=== PATIENT | female | born 1935 | race Caucasian/White ===

== ENCOUNTER 2018-06-18 10:39 | Day surgery (SDC) | payer MEDICARE, OTHER ==
[2018-06-16 15:57] VITALS: BMI 24.6
[~2018-06-18 10:39] MED LIST: DEXAMETHASONE SOD PHOSPHATE 10 MG/ML 1 ML VIAL IV ONE; LACTATED RINGERS 1,000 ML IV SCH; LIDOCAINE 1% 20 ML VIAL (10MG/ML) FOR IV START INTRADERMA PRN; MIDAZOLAM 2 MG/2 ML VIAL IV PRN; ONDANSETRON 4 MG/2 ML VIAL IVP ONE; Pre Op ABX Message 1 EACH MISC MISCELLANE ONE; SODIUM CHLORIDE 0.9% 1,000 ML IV SCH; fentaNYL (PF) 50 MCG/ML 2 ML AMP IV PRN
[2018-06-18 11:36] VITALS: TEMP 97.9
[2018-06-18] MEDS ORDERED: LIDOCAINE 1% INJ 10MG/ML (20 ML MDV) ONE (12:53)
[2018-06-18] MEDS ORDERED: SUCCINYLCHOLINE CHLORIDE 100 MG/5 ML SYR IV ONE (12:53)
[2018-06-18] MEDS ORDERED: PROPOFOL 10 MG/ML 20 ML VIAL IV ONE (12:53)
[2018-06-18] MEDS ORDERED: LIDOCAINE 2% INJ 20 MG/ML INTRATRACH ONE (14:07)
[2018-06-18] MEDS ORDERED: ALBUTEROL NEBULIZED 2.5 MG/3 ML INHALATION ONE (14:28)
--- NOTE | 2018-06-18 15:00 | XR ---
EXAMINATION TYPE: XR chest 1V portable DATE OF EXAM: 06/18/2018 COMPARISON: Outside x-ray dated 05/15/2018 HISTORY: Post bronchoscopy TECHNIQUE: Single frontal view of the chest is obtained. FINDINGS: There is increased soft tissue attenuation along the right upper tracheal airway. This is above the thoracic inlet. Diffuse osteopenia and arthropathy of the shoulders. Right hilar soft tissu e prominence and postsurgical changes. Correlate for underlying COPD. Right hemidiaphragm elevation and subsegmental atelectasis suspected. Atherosclerotic change of the a john with no overt failure. Heart size normal. No pneumothorax. IMPRESSION: 1. Right hilar soft tissue prominence may be postsurgical underlying adenopathy not excluded. 2. COPD and postsurgical change with no sizable pneumothorax. 3. There is increased soft tissue density along the trachea paramedian to the right at the level just above the thoracic inlet. Correlate clinically.
[2018-06-18 15:08] VITALS: RESP 18
[2018-06-18 16:11] VITALS: BP 134/68; PULSE 123
--- NOTE | 2018-06-18 16:28 | P.PCN ---
Date of Procedure: 06/18/18 Preoperative Diagnosis: Suspicious right hilar mass, right mainstem bronchus narrowing based on CAT scan findings, shortness of breath Postoperative Diagnosis: 1 significant extrinsic compression of the right mainstem bronchus extending to the bronchus intermedius 2 endobronchial irregularities within the right mainstem bronchus/bronchus intermedius Procedure(s) Performed: flexible bronchoscopy and endobronchial biopsies, transbronchial needle aspirate of right paratracheal lymph node, bronchial lavage of the right stem bronchus Anesthesia: GETA Surgeon: Jeremi Zurita Estimated Blood Loss (ml): 5 Pathology: other Condition: stable Disposition: same day Operative Findings: Is is an 83-year-old female patient with history of COPD and the patient has a remote history of lung cancer with a previous right upper lobe resection. Based on the most recent CAT scan of the chest, the patient was found to have a right paratracheal/hilar adenopathy/mass causing mass effect and obstruction of the right mainstem bronchus. For that reason a bronchoscopy was indicated for d iagnostic purposes The patient was brought into the endoscopy suite. The procedure was done under general anesthesia. The patient was intubated in the usual fashion by FINISH SPECIALIST. The patient was intubated by #8 orotracheal tube. Following that the patient was assessed with a mechanical ventilator and as the patient was being adequately oxygen at 10 and ventilated, the flexible bronchoscopy was completed. The bronchoscope was advanced through the adapter that wasn't tested orotracheal tube and was gradually advanced to the lower trachea. The tip of the ET tube was seen around 2 cm above the stephanie. The distal trachea was within normal limits. Immediately, it was noted that the right mainstem bronchus was significantly narrowed. There was mass effect causing circumferential narrowing of the right mainstem bronchus and the most of the mass effect was coming posteriorly as the membranous trachea was pushed forward and that was causing significant airway compromise. I was able to push my flexible bronchoscope with opening. The stump of the right upper lobe was noted. The bronchus intermedius was also quite narrowed and extrinsically compressed. There was also some endobronchial swelling and prominence throughout the right mainstem bronchus and bronchus intermedius. The various segments of the right lower lobe were patent. The right middle lobe various segments were also patent. At this point, the bronchoscope was moved to the distal trachea and transbronchial needle aspirate of the membranous trachea leading into the right mainstem bronchus was done and I utilized a 19-gauge histology and a 21-gauge cytology needle. Several passes were obtained. The sample did not seem to be adequate. Pathology and further testing was needed. Following that, I performed and the bronchial biopsies as the site of the transbronchial needle aspirate became quite irregular and sloughed following the biopsy. In the bronchial biopsies of these areas were done and multiple biops ies were obtained. Following that, the right mainstem bronchus was irrigated with saline and total of 60 mL of saline was infused and 50 disease of bloody aspirate was obtained. Describing the right mainstem bronchus, the area was quite narrowed and there was significant airway compromise dropping the airway lumen by around 80% of his normal caliber. I was unable to pass the bronchoscope into the right mainstem bronchus and bronchus intermedius. Similar narrowing was also seen in the bronchus intermedius. I was hesitant to put an endobronchial stent knowing that I did not have any final pathologic confirmation of this was malignancy. We'll be awaiting the results of the biopsies and will make further decision on endobronchial stenting. The flexible bronchoscope was removed. No significant bleeding was encountered. The patient was extubated and the patient was transferred to recovery in stable condition. Chest x-ray showed some prominence in the right hilar area otherwise no other abnormalities noted. The patient will be discharged home once cleared by anesthesia. I'm going to contact the patient once the results of the biopsies are available. We'll continue to follow.
== END 2018-06-18 16:58 | disposition home or self-care (01) ==
LOC: ORWHC2ENDO 10:39
PROVIDERS: ATTEND Internal Medicine Critical Care Medicine
DX: C34.91 Malignant neoplasm of unspecified part of right bronchus or lung (principal); J44.9 Chronic obstructive pulmonary disease, unspecified; H91.90 Unspecified hearing loss, unspecified ear; K21.9 Gastro-esophageal reflux disease without esophagitis; E78.5 Hyperlipidemia, unspecified; R06.1 Stridor; Z87.891 Personal history of nicotine dependence; Z85.118 Personal history of other malignant neoplasm of bronchus and lung; Z90.2 Acquired absence of lung [part of]; Z79.82 Long term (current) use of aspirin; Z79.899 Other long term (current) drug therapy
CPT/HCPCS: 88108; 88305; 88173; 88342; 88341; 71045; 31629; 31625; 31624; J2001 ×2; J1100; J2405; J0330; J2704

== ENCOUNTER 2018-06-26 10:00 | Day surgery (SDC) | payer MEDICARE, OTHER ==
[~2018-06-26 10:00] MED LIST changes: +ALBUTEROL NEB (CONC) 2.5 MG/0.5 ML INHALATION ONE; -DEXAMETHASONE SOD PHOSPHATE 10 MG/ML 1 ML VIAL IV ONE; -LIDOCAINE 1% 20 ML VIAL (10MG/ML) FOR IV START INTRADERMA PRN; +LIDOCAINE 2% (PF) 20 MG/ML 10 ML AMP INHALATION ONE; +LIDOCAINE VISCOUS 300 MG/15 ML CUP MUCOUS MEM ONE; -MIDAZOLAM 2 MG/2 ML VIAL IV PRN; -ONDANSETRON 4 MG/2 ML VIAL IVP ONE; -Pre Op ABX Message 1 EACH MISC MISCELLANE ONE; -SODIUM CHLORIDE 0.9% 1,000 ML IV SCH; -fentaNYL (PF) 50 MCG/ML 2 ML AMP IV PRN
[2018-06-26 10:58] VITALS: BP 150/71; PULSE 92; RESP 20; TEMP 97.5
[2018-06-26] MEDS ORDERED: LIDOCAINE 1% 20 ML VIAL (10MG/ML) FOR IV START INTRADERMA ONE (11:12)
[2018-06-26] MEDS ORDERED: METOCLOPRAMIDE 5 MG/ML 2 ML VIAL IVP ONE (11:12)
[2018-06-26] MEDS ORDERED: ONDANSETRON 4 MG/2 ML VIAL IVP STA (11:22)
== END 2018-06-26 12:15 | disposition home or self-care (01) ==
LOC: ORWHC2ENDO 10:00
PROVIDERS: ATTEND Internal Medicine Critical Care Medicine
DX: R91.8 Other nonspecific abnormal finding of lung field (principal); Z53.8 Procedure and treatment not carried out for other reasons

== ENCOUNTER → 2018-07-04 | Outpatient (CLI) | payer MEDICARE, OTHER ==
--- NOTE | 2018-07-05 14:20 | PE ---
Nuclear medicine PET/CT HISTORY: Lung carcinoma, initial Patient received 14.4 mCi F18 FDG intravenously in delayed scanning was performed from the skull base to the mid thighs. Localization and attenuation correction CT scan was performed. Correlation to chest CT 05/28/2018 neck and chest: Right hilar mass shows associated hypermetabolic uptake, SUV is 19. There is no addit ional lung mass present. No pleural or pericardial effusion. Some basilar atelectatic changes are pre sent left greater than right. No cervical, axillary, or mediastinal adenopathy. There are coronary ar sylvia calcifications. ABDOMEN: No evident adrenal mass. No liver mass or suspicious hypermetabolic uptake. Large cysts low dense left pelvic mass is present measuring 4.9 x 7.2 cm and shows cystic Hounsfield unit measurement . Some local mass effect. No pelvic adenopathy or free fluid. Diverticular changes associated with th e sigmoid colon. There is mass effect inferior margin of the posterior lateral left urinary bladder, some questionable local abnormal soft tissue, questionable tethered appearance. Surgical clips are pr esent, there may have been prior surgery to account for the distortion of the bladder. Osseous structures show spondylolysis at L5, there is degenerative disc change and facet arthropathy. IMPRESSION: Findings compatible with bronchogenic carcinoma. Postop changes. Indeterminate low dense left pelvic mass with additional findings above.
== END | disposition home or self-care (01) ==
LOC: RADPETMAIN 11:04
PROVIDERS: ATTEND Radiology Radiation Oncology
DX: C34.90 Malignant neoplasm of unspecified part of unspecified bronchus or lung (principal); R19.00 Intra-abdominal and pelvic swelling, mass and lump, unspecified site
CPT/HCPCS: 78815; A9552

== ENCOUNTER → 2018-09-19 | Outpatient (CLI) | payer MEDICARE, OTHER ==
--- NOTE | 2018-09-20 09:52 | PE ---
EXAMINATION TYPE: PET CT fusion skull to thigh DATE OF EXAM: 09/19/2018 COMPARISON: CT thorax 05/28/2018 Prior PET/CT: 07/04/2018 HISTORY: Lung cancer TECHNIQUE: Following the intravenous administration of 10.755 mCi of F-18 FDG, whole body images are performed from the skull base to the midthigh. Images are reviewed on the computer in the coronal, axial, and sagittal planes. Reconstructed rotating images are created on independent workstation and reviewed on the computer. A localization and attenuation correction CT is performed in conjunction with the PET scan. DLP: Unknown mGycm SCAN: Subsequent Blood glucose: 75 mg/dL Average Mediastinum SUV: 1.72 Average Liver SUV: 1.85 FINDINGS: NECK: No abnormal uptake THORAX: There is increased uptake within a posterior right peribronchial region measuring 4.91 SUV va lue. This is diminished in intensity which previously measured 16.96 SUV value. ABDOMEN: No abnormal uptake PELVIS: There is some focal uptake at the level the rectum. This has elevated SUV value of 8.91. Cons ider additional evaluation. Neoplasm is not excluded. OSSEOUS STRUCTURES: No abnormal uptake LOCALIZATION CT: Vascular calcification aorta. Ascending thoracic aorta at the level of the main pulm onary artery is 2.9 cm. Patient is 2.7 cm. The mass posterior to the right bronchus is estimated at 2 .5 cm in diameter on the localization CT. Coronary artery calcification is present. Large cystic stru cture left hemipelvis measuring 7.2 x 5.0 cm. Bladder diverticulum is in the right hemipelvis. COMPARISON: The mass appears larger on the current CT examination although there is obvious marked di minished SUV value. The cystic mass within the left hemipelvis was present previously and is roughly similar in size to the prior study. IMPRESSION: 1. Diminished radiotracer accumulation within the right posterior peribronchial mass the mass appears more evident on the current CT examination. 2. No suspicious changes to suggest metastatic disease.
== END | disposition home or self-care (01) ==
LOC: RADPETMAIN 09:51
PROVIDERS: ATTEND Internal Medicine Hematology & Oncology
DX: R91.8 Other nonspecific abnormal finding of lung field (principal); I70.0 Atherosclerosis of aorta; I25.10 Atherosclerotic heart disease of native coronary artery without angina pectoris; N32.3 Diverticulum of bladder
CPT/HCPCS: 78815; A9552

== ENCOUNTER → 2019-04-17 | Outpatient (CLI) | payer MEDICARE, OTHER ==
--- NOTE | 2019-04-20 11:56 | PE ---
Nuclear medicine PET/CT HISTORY: Lung carcinoma, subsequent Patient received 12.5 mCi F-18 FDG intravenously in delayed scanning was performed from the skull bas e to the mid thighs. Localization and attenuation correction CT scan was performed. Correlation to prior nuclear medicine PET/CT 09/19/2018 Neck and chest: There is no evident cervical or supraclavicular adenopathy. Right hilar soft tissue s hows associated hypermetabolic uptake, SUV is 6.2. Postop changes are noted in the right hemithorax. There is no pleural or pericardial effusion. No evident lung mass. ABDOMEN: There is no adrenal mass or liver mass. No retroperitoneal adenopathy or suspicious hypermet abolic uptake. Large cystic left pelvic mass is present, adjacent focal activity may be due to distal ureter. There is extensive diverticular change present. Left hernia and inguinal region contains fat . Suspect there is a rectocele present, there is associated hypermetabolic uptake which may be physio logic. IMPRESSION: Right hilar abnormal hypermetabolic uptake again noted.
== END | disposition home or self-care (01) ==
LOC: RADPETMAIN 08:27
PROVIDERS: ATTEND Internal Medicine Hematology & Oncology
DX: C34.31 Malignant neoplasm of lower lobe, right bronchus or lung (principal)
CPT/HCPCS: 78815; A9552

== ENCOUNTER → 2019-10-16 | Outpatient (CLI) | payer MEDICARE, OTHER ==
--- NOTE | 2019-10-17 19:48 | PE ---
EXAMINATION TYPE: PET CT fusion skull to thigh DATE OF EXAM: 10/16/2019 COMPARISON: 04/17/[address] HISTORY: Non-small cell lung cancer, subsequent. History of lung surgery. Last radiation july 2018. La st chemotherapy August 2018. TECHNIQUE: Following the intravenous administration of 11.66 mCi of F-18 FDG, whole body images are performed from the skull base to the midthigh. Images are reviewed on the computer in the coronal, a xial, and sagittal planes. Reconstructed rotating images are created on independent workstation and reviewed on the computer. A localization and attenuation correction CT is performed in conjunction with the PET scan. SCAN: Subsequent Scan Blood glucose: 80 mg/dL Average Mediastinum SUV: 1.42 Average Liver SUV: 1.83 FINDINGS: NECK: No suspicious hypermetabolic activity. THORAX: Increased size of markedly hypermetabolic right subcarinal mediastinal mass, max SUV 16.4, me asuring up to 3.8 x 2.4 cm (3:79) and previously measuring up to 2.1 x 1.7 cm on 04/17/2019 comparison. ABDOMEN/PELVIS: No suspicious hypermetabolic activity. OSSEOUS STRUCTURES: No suspicious hypermetabolic activity. LOCALIZATION CT: There are increased groundglass opacities of the posterior right upper lung. Postsur gical changes of the right lung with right-sided volume loss. No pulmonary mass. Layering gallbladder sludge versus tiny gallstones within the gallbladder. Left pelvic there is asymmetric left and anter ior urinary bladder wall thickening. 7.7 cm cystic mass redemonstrated, with no metabolic activity. T here is a 4.3 x 5.7 cm left fat-containing inguinal hernia with internal mild inflammatory stranding near the neck and inferiorly, with metabolic activity less than blood pool. Sigmoid colon diverticulo sis. Marked calcified atherosclerotic disease. Degenerative changes of the pubic symphysis and spine. COMPARISON: Progression versus 04/17/2019. IMPRESSION: 1. Increased size and hypermetabolic activity of the right mediastinal neoplastic mass versus [address] comparison. 2. No evidence of distant metastatic disease.
== END | disposition home or self-care (01) ==
LOC: RADPETMAIN 08:38
PROVIDERS: ATTEND Internal Medicine Hematology & Oncology
DX: R94.8 Abnormal results of function studies of other organs and systems (principal); C34.31 Malignant neoplasm of lower lobe, right bronchus or lung
CPT/HCPCS: 78815; A9552

== ENCOUNTER → 2020-02-25 | Outpatient (CLI) | payer MEDICARE, OTHER ==
--- NOTE | 2020-02-29 15:26 | PE ---
Nuclear medicine PET/CT HISTORY: Bilateral lung carcinoma, subsequent Patient received 11.8 mCi F-18 FDG intravenously in delayed scanning was performed from the skull bas e to the mid thighs. Localization and attenuation correction CT scan was performed. Correlation to prior nuclear medicine PET/CT dated 10/16/2019 Chest and neck: There is no supraclavicular or cervical adenopathy. The mass at the level of the para tracheal suprahilar location on the right shows some associated hypermetabolic uptake but poorly defi maninder margins, the size of the hypermetabolic uptake at this level is thought to be decreased as compar ed to prior exam. There are coronary artery calcifications. No pleural or pericardial effusion. Some patchy density is present in the right lower lobe not seen on prior exam which is indeterminate. Volu me loss is present in the right hemithorax, patient is post lobectomy. No axillary adenopathy. ABDOMEN: There is no evident adrenal mass or suspicious hypermetabolic uptake. No ascites. Cystic lef t adnexal mass is again seen. Suspect postop changes in the left groin post hernia repair. Osseous structures are stable. IMPRESSION: Improvement, treatment response in previously identified abnormal chest uptake as describ ed.
== END | disposition home or self-care (01) ==
LOC: RADPETMAIN 10:03
PROVIDERS: ATTEND Internal Medicine Hematology & Oncology
DX: C34.31 Malignant neoplasm of lower lobe, right bronchus or lung (principal); R91.8 Other nonspecific abnormal finding of lung field; C34.12 Malignant neoplasm of upper lobe, left bronchus or lung
CPT/HCPCS: 78815; A9552

== ENCOUNTER → 2020-08-11 | Outpatient (CLI) | payer MEDICARE, OTHER ==
--- NOTE | 2020-08-14 07:20 | PE ---
EXAMINATION TYPE: PET CT fusion skull to thigh DATE OF EXAM: 08/11/2020 COMPARISON: Prior PET/CT February 25, 2020 and older studies HISTORY: Right-sided lung cancer diagnosed 2019 initially treated with radiation treatment, recently completed chemotherapy June 28 TECHNIQUE: Following the intravenous administration of 9.35 mCi of F-18 FDG, whole body images are p erformed from the skull base to the midthigh. Images are reviewed on the computer in the coronal, ax ial, and sagittal planes. Reconstructed rotating images are created on independent workstation and r eviewed on the computer. A localization and attenuation correction CT is performed in conjunction w ith the PET scan. Blood glucose level equals 63. SCAN: Subsequent Scan FINDINGS: SKULL BASE AND NECK: Hypermetabolic uptake left lateral proximal upper extremity muscle axial image 3 6 is presumed inflammatory. No new areas of abnormal hypermetabolic uptake. CHEST, MEDIASTINUM, AND HILAR REGION: There is improved hypermetabolic uptake at level of the right p aratracheal suprahilar region with more ill-defined masslike consolidation redemonstrated. Adjacent l amita shows slightly hypermetabolic irregular areas of consolidation. Findings consistent with positive treatment response. Max SUV is 3.6 at site of prior hypermetabolic neoplasm and 3.69 throughout the lung parenchyma. Some right-sided volume loss with mediastinal shift is present. Additional consolida tion and/or atelectatic change extends to the posterior lower lung. No new areas of abnormal hypermet abolic uptake. Surgical changes right hilar level redemonstrated. ABDOMEN AND PELVIS: Normal excretion. No new adrenal masses. No new areas of abnormal hypermetabolic uptake. OSSEOUS STRUCTURES: New sclerosis and hypermetabolic uptake left sacrum axial image 164, the max SUV is 3.58. Correlate for possible subacute healing sacral insufficiency fracture. Sclerotic metastatic disease felt less likely as there is suspected healing subacute left inferior pelvic ramus fracture a xial image 200 and sclerosis consistent with healing fracture superior pelvic ramus near pubic symphy sis axial image 193. OTHER CT: Moderate coronary artery calcification is present. Calcification at level of mitral valve. Moderate left atrial dilatation. Small dependent stones and/or gallbladder sludge. Scattered colonic diverticula. Moderate calcified p laque of the aorta extends into branch vessels. Bilateral pars defect L5 level with significant spondylolisthesis L5-S1 and advanced disc space narro wing and endplate sclerosis at this level all redemonstrated. IMPRESSION: Positive treatment response to the known right-sided neoplasm. No new metastatic disease. Healing pelvic fractures noted.
== END | disposition home or self-care (01) ==
LOC: RADPETMAIN 10:19
PROVIDERS: ATTEND Internal Medicine Hematology & Oncology
DX: C34.31 Malignant neoplasm of lower lobe, right bronchus or lung (principal)
CPT/HCPCS: 78815; A9552

== ENCOUNTER 2020-08-14 12:31 | Day surgery (SDC) | payer MEDICARE, OTHER ==
[2020-08-11 15:28] VITALS: BMI 22.1
[~2020-08-14 12:31] MED LIST changes: +ACETAMINOPHEN TAB 500 MG TAB PO PRN; -ALBUTEROL NEB (CONC) 2.5 MG/0.5 ML INHALATION ONE; +HEPARIN SODIUM,PORCINE/PF 5,000 UNIT/0.5 ML SYRINGE SQ PRN; +HYDROmorphone 0.5 MG/0.5 ML SYRINGE IVP PRN; +LIDOCAINE 1% (10MG/ML) FOR IV START INTRADERMA PRN; -LIDOCAINE 2% (PF) 20 MG/ML 10 ML AMP INHALATION ONE; -LIDOCAINE VISCOUS 300 MG/15 ML CUP MUCOUS MEM ONE; +Pre Op ABX Message 1 EACH MISC MISCELLANE ONE
[2020-08-14] MEDS ORDERED: LACTATED RINGERS 1,000 ML IV ONE (12:59)
[2020-08-14] MEDS ORDERED: ONDANSETRON 4 MG/2 ML VIAL IVP ONE (13:08)
--- NOTE | 2020-08-14 14:18 | P.GSHP ---
History of Present Illness H&P Date: 08/14/20 Chief Complaint: Right lung cancer Patient here today for Port-A-Cath placement. Patient has been receiving chemotherapy for her right-sided lung cancer. Her IV access is very poor and she is to continue with immune therapy at this time. Her next treatment is scheduled for Friday. Past Medical History Past Medical History: COPD, GERD/Reflux, Osteoarthritis (OA) Additional Past Medical History / Comment(s): rt lung CA-received radiation and chemo, curretly receiving immunotheray, left pelvic fx-using a cane, receive both covid vaccines,migraines when younger, "a lot of heartburn and gas", bronchitis for past 3 months, hiatal hernia, chronic colitis,lung hx bowel obstruction History of Any Multi-Drug Resistant Organisms: None Reported Past Surgical History: Bladder Surgery, Bowel Resection, Hysterectomy Additional Past Surgical History / Comment(s): rt upper lobectomy, rectocele, hemorrhoidectomy, [place] cataracts, surgery for bowel obstruction Past Anesthesia/Blood Transfusion Reactions: No Reported Reaction Smoking Status: Former smoker - Past Family History Mother Family Medical History: Cancer Son(s) Family Medical History: Cancer Brother(s) Family Medical History: Deep Vein Thrombosis (DVT) Medications and Allergies Home Medications Medication Instructions Recorded Confirmed Type ALPRAZolam [Xanax] 0.25 mg PO BID PRN 06/16/18 08/11/20 History Albuterol Sulfate [Proair Hfa] 1 - 2 puff INHALATION Q4HR PRN 06/16/18 08/11/20 History Aspirin [Adult Low Dose Aspirin EC] 81 mg PO HS 06/16/18 08/11/20 History Cholecalciferol [Vitamin D3] 5,000 unit PO DAILY 06/16/18 08/11/20 History Multivitamins, Thera [Multivitamin 1 tab PO DAILY 06/16/18 08/11/20 History (formulary)] Omeprazole [PriLOSEC] 20 mg PO AC-[id number] 06/16/18 08/11/20 History Ubidecarenone [Co Q-10] 100 mg PO DAILY 06/16/18 08/11/20 History Acetaminophen [Tylenol] 1,000 mg PO TID PRN 08/11/20 08/11/20 History Allergies Allergy/AdvReac Type Severity Reaction Status Date / Time latex Allergy Swelling Verified 08/11/20 15:07 stitches Allergy SWOLLEN Uncoded 08/11/20 15:07 FOOT Surgical - Exam Vital Signs Temp Pulse Resp BP Pulse Ox 97.8 F 96 18 169/76 96 08/14/20 12:50 08/14/20 12:50 08/14/20 12:50 08/14/20 12:50 08/14/20 12:50 Physical exam: General: Well-developed, somewhat malnourished HEENT: Normocephalic, sclerae nonicteric Abdomen: Nontender, nondistended Extremities: No edema Neuro: Alert and oriented Assessment and Plan (1) Cancer of right lung Narrative/Plan: Will proceed with Port-A-Cath placement at this time. Risks of bleeding, infection, DVT, pneumothorax, catheter malfunction, anesthesia related complications were discussed. The patient understands and wishes to proceed. Current Visit: Yes Status: Acute Code(s): C34.91 - MALIGNANT NEOPLASM OF UNSP PART OF RIGHT BRONCHUS OR LUNG SNOMED Code(s): 400774447
[2020-08-14] MEDS ORDERED: PHENYLEPHRINE-0.9% NACL SYG 1,000 MCG/10 ML SYRINGE ONE (14:19)
[2020-08-14] MEDS ORDERED: PROPOFOL 10 MG/ML 20 ML VIAL IV ONE (14:19)
[2020-08-14] MEDS ORDERED: LIDOCAINE 1% INJ 10MG/ML (20 ML MDV) ONE (14:19)
[2020-08-14] MEDS ORDERED: fentaNYL (PF) 50 MCG/ML 2 ML AMP ONE (14:19)
[2020-08-14] MEDS ORDERED: LIDOCAINE 1% INJ 10MG/ML (20 ML MDV) SQ ONE ×3 (14:21→14:45)
[2020-08-14] MEDS ORDERED: SODIUM CHLORIDE 0.9% 50 ML with ceFAZolin 1,000 MG IV ONE ×2 (14:43)
[2020-08-14] MEDS ORDERED: NALOXONE 0.4 MG/ML 1 ML VIAL IV PRN (15:09)
--- NOTE | 2020-08-14 15:10 | P.OP ---
Date of Procedure: 08/14/20 Procedure(s) Performed: PREOPERATIVE DIAGNOSIS: Lung cancer POSTOPERATIVE DIAGNOSIS: Same PROCEDURE: Port-A-Cath placement with fluoroscopic and ultrasound guidance SURGEON: Caryl EBL: Minimal ANESTHESIA: Sedation COMPLICATIONS: None OPERATIVE PROCEDURE: Patient was brought and placed on the operative table in the supine position. The patient was sedated per anesthesia that time. The chest and neck were prepped and draped in usual sterile fashion. The ultrasound probe was used to identify the location of the right internal jugular vein. The skin was localized with lidocaine. The Seldinger needle was advanced into the IJ under ultrasound guidance. The wire was advanced through the needle under fluoroscopic guidance into the superior vena cava. A port pocket was created in the right infraclavicular location. The catheter was tunneled from the wire entrance site to the port pocket. The port was then connected to the catheter. The dilator introducer was threaded over the guidewire. The guidewire and dilator were then removed. The catheter was advanced through the introducer and introducer was then removed. The tip was seen to be in the right atrial junction via fluoroscopy. A picture of the radiograph showing the tip at the radial digital junction was taken. Port was flushed with both saline and a Hep- Lock solution. There was good flow both in and out of the port. The port was sutured in underlying tissues using 3-0 silk sutures. The subcutaneous tissues were reapproximated using 3-0 Vicryl sutures and the skin at both locations using 4-0 Monocryl sutures. Skin glue and sterile dressings then applied. DISPOSITION: Stable to recovery room
[2020-08-14 15:17] VITALS: TEMP 97.5
[2020-08-14 15:26] VITALS: RESP 16
--- NOTE | 2020-08-14 16:05 | FL ---
EXAMINATION TYPE: FL guided central line placement DATE OF EXAM: 08/14/2020 FLUOROSCOPY Fluoroscopy time not provided during Port-A-Cath insertion. Dose of 0.75445 mGym2. 1 image/s docume nt/s the procedure.
--- NOTE | 2020-08-14 16:11 | XR ---
EXAMINATION TYPE: XR chest 1V portable DATE OF EXAM: 08/14/2020 Comparison: 06/18/2018 Clinical History: 85-year-old female insertion port a cath Findings: Right-sided injection port. Catheter tip at the mid to lower SVC level. Heart normal size. Atherosclerotic calcifications are at the aorta. Postsurgical volume loss in the right side of the ch est with staple lines at the right hilum and right suprahilar level. Focal right midlung opacity is n ew compared to 06/18/2018. Impression: Redemonstrated postsurgical volume loss in the right hemithorax. Known right hilar neoplasm not well delineated radiographically. Patchy right midlung opacity could represent post radiation therapy foss ge or pneumonia. We note hypermetabolism in this area on the patient's 08/11/2020 PET/CT.
[2020-08-14 17:28] VITALS: BP 135/78; PULSE 82
== END 2020-08-14 17:20 | disposition home or self-care (01) ==
LOC: OR 12:31
PROVIDERS: ATTEND Surgery
DX: C34.91 Malignant neoplasm of unspecified part of right bronchus or lung (principal); J44.9 Chronic obstructive pulmonary disease, unspecified; K21.9 Gastro-esophageal reflux disease without esophagitis; M19.90 Unspecified osteoarthritis, unspecified site; Z92.21 Personal history of antineoplastic chemotherapy; Z92.3 Personal history of irradiation; S32.9XXD Fracture of unspecified parts of lumbosacral spine and pelvis, subsequent encounter for fracture with routine healing; J40 Bronchitis, not specified as acute or chronic; K44.9 Diaphragmatic hernia without obstruction or gangrene; K52.89 Other specified noninfective gastroenteritis and colitis; Z90.49 Acquired absence of other specified parts of digestive tract; Z90.710 Acquired absence of both cervix and uterus; Z98.890 Other specified postprocedural states; Z98.42 Cataract extraction status, left eye; Z98.41 Cataract extraction status, right eye; Z97.2 Presence of dental prosthetic device (complete) (partial); Z87.891 Personal history of nicotine dependence; Z80.9 Family history of malignant neoplasm, unspecified; Z82.49 Family history of ischemic heart disease and other diseases of the circulatory system; Z79.82 Long term (current) use of aspirin; Z79.899 Other long term (current) drug therapy; Z91.040 Latex allergy status; Z91.09 Other allergy status, other than to drugs and biological substances
CPT/HCPCS: 77001; 71045; 36561; 76937; C1788; J2405; J0690; J2001; J3010; J1642; J2370; J2704; J1644

== ENCOUNTER → 2021-03-08 | Outpatient (CLI) | payer MEDICARE, OTHER ==
--- NOTE | 2021-03-12 08:28 | PE ---
EXAMINATION TYPE: PET CT fusion skull to thigh DATE OF EXAM: 03/08/2021 COMPARISON: Prior PET/CT August 11, 2020 and older studies HISTORY: Right-sided lung cancer diagnosed 2019 initially treated with radiation treatment, had chemo therapy in 2020. TECHNIQUE: Following the intravenous administration of 8.57 mCi of F-18 FDG, whole body images are p erformed from the skull base to the midthigh. Images are reviewed on the computer in the coronal, ax ial, and sagittal planes. Reconstructed rotating images are created on independent workstation and r eviewed on the computer. A localization and attenuation correction CT is performed in conjunction w ith the PET scan. Blood glucose level equals 77. SCAN: Subsequent Scan FINDINGS: SKULL BASE AND NECK: Hypermetabolic uptake left lateral proximal upper extremity muscle prior study h as resolved in interval. No new areas of abnormal hypermetabolic uptake. CHEST, MEDIASTINUM, AND HILAR REGION: Surgical changes to right lung extending from the hilum anterio rly and superiorly redemonstrated There is worsening hypermetabolic uptake at level of the right para tracheal suprahilar region extending anteriorly and superiorly with worsening masslike consolidation. Adjacent lung shows persistent slightly hypermetabolic irregular areas of consolidation posteriorly. Max SUV is 7.36 on axial image 75 at site of prior hypermetabolic neoplasm increased from 3.6 and 3 .68 throughout the lung parenchyma fairly stable from prior. Some right-sided volume loss with medias tinal shift is redemonstrated. Additional consolidation and/or atelectatic change extends to the post erior lower lung. New hypermetabolic roughly 1.0 cm focus in the azygoesophageal recess right lower l obe medially axial image 83, max SUV is 5.1. No new areas of abnormal hypermetabolic uptake left lung. ABDOMEN AND PELVIS: Normal excretion. No new adrenal masses. No new areas of abnormal hypermetabolic uptake. OSSEOUS STRUCTURES: Resolved hypermetabolic uptake left sacrum. No new areas of abnormal hypermetabol ic uptake. Healed pelvic fractures noted. OTHER CT: Moderate coronary artery calcification is present. Calcification at level of mitral valve. Moderate left atrial dilatation. Small dependent stones and/or gallbladder sludge. Scattered colonic diverticula. Moderate calcified p laque of the aorta extends into branch vessels. Bilateral pars defect L5 level with significant spondylolisthesis L5-S1 and advanced disc space narro wing and endplate sclerosis at this level all redemonstrated. Stable 8.3 x 6.5 cm thin-walled left pe lvic cyst or cystic ovarian lesion axial image 180. IMPRESSION: Right lung neoplastic progression as detailed above.
== END | disposition home or self-care (01) ==
LOC: RADPETMAIN 10:47
PROVIDERS: ATTEND Internal Medicine Hematology & Oncology
DX: C34.31 Malignant neoplasm of lower lobe, right bronchus or lung (principal)
CPT/HCPCS: 78815; A9552

== ENCOUNTER 2024-01-09 11:39 | Inpatient (IN) | payer MEDICARE, OTHER ==
--- NOTE | 2024-01-09 12:51 | ED ---
General Adult HPI - General Chief complaint: Extremity Problem,Nontraumatic Stated complaint: L foot issue Time Seen by Provider: 01/09/24 12:02 Source: patient, RN notes reviewed Mode of arrival: wheelchair Limitations: no limitations - History of Present Illness Initial comments: Patient is an 88-year-old female presents to the emergency department with concerns for left foot infection. Patient is on hospice for lung cancer. Patient has been dealing with her left foot infection for a couple of months now. Patient has been on several antibiotics including doxycycline recently. Patient has significant pain especially with ambulation, 8/10. Pain at rest is 5/10. This is consuming her and she has been very uncomfortable. They no longer feel they are able to manage this as an outpatient. Patient was at [facility] previously. Patient also has seen her primary care physician and foot doctor and urgent care for this. Patient has not gone to wound center yet - Related Data Home Medications Medication Instructions Recorded Confirmed ALPRAZolam [Xanax] 0.25 mg PO BID PRN 06/16/18 01/09/24 Aspirin [Adult Low Dose Aspirin EC] 81 mg PO DAILY 06/16/18 01/09/24 Cyanocobalamin (Vitamin B-12) 1,000 mcg PO DAILY 01/09/24 01/09/24 [Vitamin B-12] Doxycycline Hyclate 100 mg PO BID 01/09/24 01/09/24 L.acidoph,Paracasei, B.lactis 1 cap PO DAILY 01/09/24 01/09/24 [Probiotic] amLODIPine [Norvasc] 2.5 mg PO DAILY 01/09/24 01/09/24 guaiFENesin [Mucinex] 600 mg PO BID PRN 01/09/24 01/09/24 Allergies Allergy/AdvReac Type Severity Reaction Status Date / Time latex Allergy Swelling Verified 01/09/24 14:17 stitches Allergy SWOLLEN Uncoded 08/11/20 15:07 FOOT Review of Systems ROS Statement: Those systems with pertinent positive or pertinent negative responses have been documented in the HPI. ROS Other: All systems not noted in ROS Statement are negative. Constitutional: Denies: fever ENT: Denies: ear pain Respiratory: Denies: dyspnea Cardiovascular: Denies: chest pain Endocrine: Denies: fatigue Musculoskeletal: Reports: as per HPI Skin: Reports: as per HPI Past Medical History Past Medical History: Cancer, COPD, GERD/Reflux, Osteoarthritis (OA) Additional Past Medical History / Comment(s): rt lung CA-received radiation and chemo, currently receiving immunotheray, left pelvic fx-using a cane, receive both covid vaccines,migraines when younger, "a lot of heartburn and gas", bronchitis for past 3 months, hiatal hernia, chronic colitis,lung hx bowel obstruction History of Any Multi-Drug Resistant Organisms: None Reported Past Surgical History: Bladder Surgery, Bowel Resection, Hysterectomy Additional Past Surgical History / Comment(s): rt upper lobectomy, rectocele, hemorrhoidectomy, [place] cataracts, surgery for bowel obstruction Past Anesthesia/Blood Transfusion Reactions: No Reported Reaction Past Psychological History: Anxiety Smoking Status: Former smoker Past Alcohol Use History: None Reported Past Drug Use History: None Reported - Past Family History Mother Family Medical History: Cancer Son(s) Family Medical History: Cancer Brother(s) Family Medical History: Deep Vein Thrombosis (DVT) General Exam Limitations: no limitations General appearance: alert, in no apparent distress Head exam: Present: normocephalic Eye exam: Present: normal appearance Respiratory exam: Present: normal lung sounds bilaterally Cardiovascular Exam: Present: regular rate, normal rhythm Expanded Peripheral pulses: 2+: Posterior Tibialis (L), Dorsalis Pedis (L) GI/Abdominal exam: Present: soft. Absent: tenderness Extremities exam: Present: normal capillary refill, other (Left foot cellulitis and ulcer, see below) Neurological exam: Present: alert. Absent: motor sensory deficit Psychiatric exam: Present: normal affect, normal mood Skin exam: Present: other (Left distal and mid foot, near the proximal foot with erythema. Plantar distal foot with approximately 1 cm ulcer stage II/III) Course Vital Signs 01/09/24 11:40 Temperature 98.2 F Pulse Rate 88 Respiratory 18 Rate Blood Pressure 126/64 O2 Sat by Pulse 93 L Oximetry Medical Decision Making - Medical Decision Making Was pt. sent in by a medical professional or institution (, PA, RESPIRATORY MEDICINE PHYSICIAN, urgent care, hospital, or [facility]...) When possible be specific @ -Patient was sent in by home hospice Did you speak to anyone other than the patient for history (EMS, parent, family, police, friend...)? What history was obtained from this source @ -I did speak with patient's hospice nurse as well as family members that he will provide history as patient is hard of hearing Did you review nursing and triage notes (agree or disagree)? Why? @ -I reviewed and agree with nursing and triage notes Were old charts reviewed (outside hosp., previous admission, EMS record, old EKG, old radiological studies, urgent care reports/EKG's, [facility] records)? Report findings @ -No old charts were reviewed Differential Diagnosis (chest pain, altered mental status, abdominal pain women, abdominal pain men, vaginal bleeding, weakness, fever, dyspnea, syncope, headache, dizziness, GI bleed, back pain, seizure, CVA, palpatations, mental health, musculoskeletal)? @ -Differential Fever: Pneumonia, viral URI, endocarditis, myocarditis, pericarditis, otitis, sinusitis, peritonsillar Abscess, retropharyngeal Abscess, epiglottitis, peritonitis, appendicitis, Tricia cystitis, diverticulitis, hepatitis, colitis, UTI, PID, TOA, pyelonephritis, prostatitis, epididymitis, meningitis, encephalitis, pulmonary embolism, CVA, thyroid storm, pancreatitis, adrenal crisis, cavernous sinus thrombosis, this is not meant to be an all-inclusive list. EKG interpreted by me (3pts min.). @ -As above X-rays interpreted by me (1pt min.). @ -Foot x-ray without evidence of osseous osteomyelitis CT interpreted by me (1pt min.). @ -None done U/S interpreted by me (1pt. min.). @ -None done What testing was considered but not performed or refused? (CT, X-rays, U/S, labs)? Why? @ -None What meds were considered but not given or refused? Why? @ -None Did you discuss the management of the patient with other professionals (professionals i.e. DrSisi, PA, RESPIRATORY MEDICINE PHYSICIAN, lab, RT, psych nurse, social work job titles, auger mill operator, teacher, electronic intelligence officer, lead case manager)? Give summary @ -Case was discussed with Dr. Astudillo who will admit covering Dr. Gray. Case also discussed with Dr. Jasmine who will consult Was smoking cessation discussed for >3mins.? @ -No Was critical care preformed (if so, how long)? @ -No Were there social determinants of health that impacted care today? How? (Homelessness, low income, unemployed, alcoholism, drug addiction, transportation, low edu. Level, literacy, decrease access to med. care, half-way, rehab)? @ -No Was there de-escalation of care discussed even if they declined (Discuss DNR or withdrawal of care, Hospice)? DNR status @ -No What co-morbidities impacted this encounter? (DM, HTN, Smoking, COPD, CAD, Cancer, CVA, ARF, Chemo, Hep., AIDS, mental health diagnosis, sleep apnea, morbid obesity)? @ -None Was patient admitted / discharged? Hospital course, mention meds given and route, prescriptions, significant lab abnormalities, going to OR and other pertinent info. @ -Patient presents with prolonged foot ulcer and cellulitis despite several doses of antibiotics. Patient will be admitted with IV antibiotics. Admission orders written. Consult placed. Undiagnosed new problem with uncertain prognosis? @ -No Drug Therapy requiring intensive monitoring for toxicity (Heparin, Nitro, Insulin, Cardizem)? @ -No Were any procedures done? @ -No Diagnosis/symptom? @ -Foot ulcer, cellulitis Acute, or Chronic, or Acute on Chronic? @ -Acute, acute Uncomplicated (without systemic symptoms) or Complicated (systemic symptoms)? @ -Complicated with severe pain Side effects of treatment? @ -No Exacerbation, Progression, or Severe Exacerbation? @ -No Poses a threat to life or bodily function? How? (Chest pain, USA, GA, pneumonia, PE, COPD, DKA, ARF, appy, cholecystitis, CVA, Diverticulitis, Homicidal, Suicidal, threat to staff... and all critical care pts) @ -Threat of osteomyelitis and prolonged infection - Lab Data Result diagrams: 01/09/24 13:46 01/09/24 13:46 Lab Results 01/09/24 01/09/24 01/09/24 Range/Units 13:46 13:46 13:46 WBC 5.8 (3.8-10.6) k/uL RBC 3.94 (3.80-5.40) m/uL Hgb 12.0 (11.4-16.0) gm/dL Hct 37.7 (34.0-46.0) % MCV 95.9 (80.0-100.0) fL MCH 30.6 (25.0-35.0) pg MCHC 31.9 (31.0-37.0) g/dL RDW 13.0 (11.5-15.5) % Plt Count 340 (150-450) k/uL MPV 8.0 Neutrophils % 86 % Lymphocytes % 7 % Monocytes % 6 % Eosinophils % 0 % Basophils % 0 % Neutrophils # 5.0 (1.3-7.7) k/uL Lymphocytes # 0.4 L (1.0-4.8) k/uL Monocytes # 0.4 (0-1.0) k/uL Eosinophils # 0.0 (0-0.7) k/uL Basophils # 0.0 (0-0.2) k/uL PT 11.2 (10.0-12.5) sec INR 1.0 (<1.2) APTT 24.0 (22.0-30.0) sec Sodium 137 (137-145) mmol/L Potassium 4.5 (3.5-5.1) mmol/L Chloride 105 (98-107) mmol/L Carbon Dioxide 24 (22-30) mmol/L Anion Gap 8 mmol/L BUN 16 (7-17) mg/dL Creatinine 0.65 (0.52-1.04) mg/dL Est GFR (CKD-EPI)AfAm >90 (>60 ml/min/1.73 sqM) Est GFR (CKD-EPI)NonAf 80 (>60 ml/min/1.73 sqM) Glucose 122 H (74-99) mg/dL Plasma Lactic Acid Bhavik (0.7-2.0) mmol/L Calcium 9.7 (8.4-10.2) mg/dL Total Bilirubin 0.4 (0.2-1.3) mg/dL AST 21 (14-36) U/L ALT 9 (4-34) U/L Alkaline Phosphatase 68 (38-126) U/L Total Protein 6.7 (6.3-8.2) g/dL Albumin 4.1 (3.5-5.0) g/dL 01/09/24 Range/Units 15:10 WBC (3.8-10.6) k/uL RBC (3.80-5.40) m/uL Hgb (11.4-16.0) gm/dL Hct (34.0-46.0) % MCV (80.0-100.0) fL MCH (25.0-35.0) pg MCHC (31.0-37.0) g/dL RDW (11.5-15.5) % Plt Count (150-450) k/uL MPV Neutrophils % % Lymphocytes % % Monocytes % % Eosinophils % % Basophils % % Neutrophils # (1.3-7.7) k/uL Lymphocytes # (1.0-4.8) k/uL Monocytes # (0-1.0) k/uL Eosinophils # (0-0.7) k/uL Basophils # (0-0.2) k/uL PT (10.0-12.5) sec INR (<1.2) APTT (22.0-30.0) sec Sodium (137-145) mmol/L Potassium (3.5-5.1) mmol/L Chloride (98-107) mmol/L Carbon Dioxide (22-30) mmol/L Anion Gap mmol/L BUN (7-17) mg/dL Creatinine (0.52-1.04) mg/dL Est GFR (CKD-EPI)AfAm (>60 ml/min/1.73 sqM) Est GFR (CKD-EPI)NonAf (>60 ml/min/1.73 sqM) Glucose (74-99) mg/dL Plasma Lactic Acid Bhavik 0.9 (0.7-2.0) mmol/L Calcium (8.4-10.2) mg/dL Total Bilirubin (0.2-1.3) mg/dL AST (14-36) U/L ALT (4-34) U/L Alkaline Phosphatase (38-126) U/L Total Protein (6.3-8.2) g/dL Albumin (3.5-5.0) g/dL Disposition Clinical Impression: Foot ulcer, Cellulitis of left foot Disposition: ADMITTED IP TO THIS HOSP Is patient prescribed a controlled substance at d/c from ED?: No Referrals: Johnny Renteria MD [Primary Care Provider] - 1-2 days [facility] [[facility]FF] - Time of Disposition: 15:34
[2024-01-09] MEDS: HYDROmorphone 0.5 MG/0.5 ML SYRINGE IVP STA (14:13)
[2024-01-09] MEDS: CLINDAMYCIN 300 MG in DEXTROSE 5% IN WATER 50 ML IVPB SCH (14:25)
[2024-01-09 14:37] LABS: Basophils % (A) 0 %; Eosinophils % (A) 0 %; HCT 37.7 % (34.0-46.0); Lymphocytes # (A) 0.4 k/uL (1.0-4.8); Lymphocytes % (A) 7 %; MCH 30.6 pg (25.0-35.0); MCHC 31.9 g/dL (31.0-37.0); MCV 95.9 fL (80.0-100.0); Monocytes # (A) 0.4 k/uL (0-1.0); Monocytes % (A) 6 %; Neutrophils % (A) 86 %; Platelet Count 340 k/uL (150-450); RBC 3.94 m/uL (3.80-5.40); WBC 5.8 k/uL (3.8-10.6)
[2024-01-09 14:45] LABS: Prothrombin Time 11.2 sec (10.0-12.5)
[2024-01-09 14:51] LABS: ALT 9 U/L (4-34); AST 21 U/L (14-36); African American GFR (CKD) >90 (>60 ml/min/1.73 sqM); Albumin 4.1 g/dL (3.5-5.0); Alkaline Phosphatase 68 U/L (38-126); Anion Gap 8 mmol/L; Blood Urea Nitrogen 16 mg/dL (7-17); Calcium 9.7 mg/dL (8.4-10.2); Carbon Dioxide 24 mmol/L (22-30); Chloride 105 mmol/L (98-107); Glucose 122 mg/dL (74-99); Non-African American GFR(CKD) 80 (>60 ml/min/1.73 sqM); Potassium 4.5 mmol/L (3.5-5.1); Sodium 137 mmol/L (137-145); Total Bilirubin 0.4 mg/dL (0.2-1.3); Total Protein 6.7 g/dL (6.3-8.2)
--- NOTE | 2024-01-09 15:09 | XR ---
EXAMINATION TYPE: XR foot complete 3 views LT DATE OF EXAM: 01/09/2024 2:25 PM COMPARISON: None. CLINICAL INDICATION: Female, 88 years old with pain, history of ulcer, , FINDINGS: Diffuse forefoot and midfoot soft tissue swelling. There is a plantar ulcer along the ball of the lat eral view no adjacent lytic destruction is identified. No acute fracture, subluxation or dislocation. IMPRESSION: Generalized forefoot and midfoot soft tissue swelling. Ulcer along the ball of the foot. No radiograp hic evidence for osteomyelitis. Follow-up as clinically indicated. [facility], , 01/09/2024 3:06 PM
[2024-01-09] MEDS ORDERED: guaiFENesin 600 MG TABLET.ER PO PRN (15:27)
[2024-01-09] MEDS ORDERED: HYDROmorphone 1 MG/ML 1 ML SYRINGE IVP PRN (15:34)
[2024-01-09] MEDS ORDERED: NALOXONE 0.4 MG/ML 1 ML VIAL IV PRN (15:34)
[2024-01-09] MEDS ORDERED: VANCOMYCIN IV PER PHARMACY 1 EACH MISC MISCELLANE PRN (15:49)
[2024-01-09] MEDS ORDERED: HYDROmorphone 2 MG/ML 1 ML SYRINGE IVP PRN (16:14)
[2024-01-09] MEDS: VANCOMYCIN 750 MG in SODIUM CHLORIDE 0.9% 250 ML IVPB STA (17:26)
[2024-01-09] MEDS: SODIUM CHLORIDE 0.9% 1,000 ML IV SCH (17:26)
--- NOTE | 2024-01-09 18:18 | P.HPIM ---
History of Present Illness H&P Date: 01/09/24 Chief Complaint: Left foot pain This is a very pleasant 88-year-old patient who follows with Dr. Renteria. Medical history includes COPD, GERD, osteoarthritis, chronic colitis. Patient is extremely hard of hearing. But able to give a history. She was diagnosed with right lung cancer 24 years ago. Had partial lung removed followed by radiation and chemotherapy. Did well. About 4 years ago she developed cancer again what she describes in the tubes of the lung. And she was given chemoradiation. Hence she was told that nothing further can be done. For last 2 years patient has been hospice. But otherwise doing fair. Her appetite is good. Normally has a bowel movement every other day. No chronic pain. Except now she presents for left foot infection that she has had for few weeks. She follows with dye winch operator Dr. Mcmahon. Has received a few course of antibiotics. It has become more painful. She been under hospice for close to 2 years. Hospice is planning to take her off the hospice service. Denies any obvious fever and chills. States she also has Raynaud's. Does not follow with any lung doctor. Review of systems: GEN.: None EYES: None HEENT: Very hard of hearing NECK: None RESPIRATORY: None CARDIOVASCULAR: None GASTROINTESTINAL: None GENITOURINARY: None MUSCULOSKELETAL: [Arthritic joints LYMPHATICS: None HEMATOLOGICAL: None PSYCHIATRY: None NEUROLOGICAL: Uses a walker Social history: Son lives with her. She smoked a pack a day for 40 years stopped 18 years ago. Does use a walker. Physical examination: VITAL SIGNS: 98.4, 88, 18, 148 x 66, 98% room air GENERAL: BMI 21, thin built, laying in bed not in distress. EYES: Pupils equal. Conjunctiva maurice l. HEENT: External appearance of nose and ears normal, oral cavity grossly normal. Extremely hard of hearing NECK: JVD not raised; masses not palpable. HEART: First and second heart sounds are normal; no edema. LUNGS: Respiratory rate normal; creased breath sounds. ABDOMEN: Soft, nontender, liver spleen not palpable, no masses palpable. PSYCH: Alert and oriented x3; mood and affect maurice l. MUSCULOSKELETAL:No Clubbing/cyanosis;muscles-grossly intact. OA especially in the hands and other joints NEUROLOGICAL: Cranial nerves grossly intact; no facial asymmetry, power and sensation grossly intact. LYMPHATICS: No lymph nodes palpable in the axilla and neck Extremities: Left foot has a wound on the plantar surface proximal to the second metacarpal phalangeal joint. Very tender surrounding the same. Area of redness extending to the midfoot. Possibly some fluctuation INVESTIGATIONS, reviewed in the clinical context: January 09, 2024: White count 5.8 hemoglobin 12 platelets 340 sodium 137 potassium 4.5 creatinine 0.65 lactic acid 0.9 Left foot 3 views: Generalized forefoot and midfoot soft tissue swelling. Ulcer along the ball of the foot. No radiographic evidence of osteolysis. Assessment plan: -Left foot wound on the plantar surface. With surrounding cellulitis. Patient has an ulcer on the plantar surface. Surrounding area is very tender and boggy. Possible underlying cellulitis. Patient has several course of antibiotics outpatient. Was following with dye winch operator Dr. Hicks.: Possible foot abscess Patient was getting doxycycline outpatient Patient has decreased circulation. Vascular surgery Dr. Gonzalez was consulted. He did talk to him on the phone. ID is consulted. -Lung cancer: Patient initially had cancer in the right lung 24 years ago. This was locally resected. Followed by chemo and and radiation. Subsequently patient was diagnosed with cancer in the lung about 4 years ago. Treated locally with chemo and radiation. Was told nothing further can be done. Does a PET scan from 2020 showing: Worsening hypermetabolic uptake at the level of the right paratracheal suprahilar region extending anteriorly and superiorly with worsening masslike consolidation. Some right-sided volume loss. Additional consolidation and atelectatic change extending to the posterior lower lobe. Patient states she was told previously that no further treatment could be done. Hence she was in the hospital for last 2 years. Is being followed by [facility] as outpatient. -Extremely hard of hearing, has hearing aids -Chronic gait dysfunction, uses a walker at baseline -Moderate protein calorie malnutrition, likely for underlying malignancy Ensure 1 can 3 times daily -COPD in a previous smoker Albuterol as needed -Primary osteoarthritis Pain medication as needed -Essential hypertension Amlodipine 2.5 mg daily -DNR [patient is under hospice care as outpatient] Given the complexity and severity of patient's condition expect the patient to be in the hospital at least for 2 overnights Past Medical History Past Medical History: Cancer, COPD, GERD/Reflux, Osteoarthritis (OA) Additional Past Medical History / Comment(s): rt lung CA-received radiation and chemo, left pelvic fx-using a cane, receive both covid vaccines,migraines when younger, "a lot of heartburn and gas", bronchitis for past 3 months, hiatal hernia, chronic colitis,lung hx bowel obstruction History of Any Multi-Drug Resistant Organisms: None Reported Past Surgical History: Bladder Surgery, Bowel Resection, Hysterectomy Additional Past Surgical History / Comment(s): rt upper lobectomy, rectocele, hemorrhoidectomy, [place] cataracts, surgery for bowel obstruction Past Anesthesia/Blood Transfusion Reactions: No Reported Reaction Past Psychological History: Anxiety Smoking Status: Former smoker Past Alcohol Use History: None Reported Additional Past Alcohol Use History / Comment(s): quit smoking 18 yrs ago, smoked for 40 yrs, 1 PPD Past Drug Use History: None Reported - Past Family History Mother Family Medical History: Cancer Son(s) Family Medical History: Cancer Brother(s) Family Medical History: Deep Vein Thrombosis (DVT) Medications and Allergies Home Medications Medication Instructions Recorded Confirmed Type ALPRAZolam [Xanax] 0.25 mg PO BID PRN 06/16/18 01/09/24 History Aspirin [Adult Low Dose Aspirin EC] 81 mg PO DAILY 06/16/18 01/09/24 History Cyanocobalamin (Vitamin B-12) 1,000 mcg PO DAILY 01/09/24 01/09/24 History [Vitamin B-12] Doxycycline Hyclate 100 mg PO BID 01/09/24 01/09/24 History L.acidoph,Paracasei, B.lactis 1 cap PO DAILY 01/09/24 01/09/24 History [Probiotic] amLODIPine [Norvasc] 2.5 mg PO DAILY 01/09/24 01/09/24 History guaiFENesin [Mucinex] 600 mg PO BID PRN 01/09/24 01/09/24 History Allergies Allergy/AdvReac Type Severity Reaction Status Date / Time latex Allergy Swelling Verified 01/09/24 14:17 stitches Allergy SWOLLEN Uncoded 08/11/20 15:07 FOOT Physical Exam Vitals: Vital Signs Temp Pulse Pulse Resp BP BP Pulse Ox 01/09/24 17:09 98.4 F 88 18 148/66 98 01/09/24 15:00 75 18 118/60 98 01/09/24 13:00 72 18 121/75 94 L 01/09/24 11:40 98.2 F 88 18 126/64 93 L Intake and Output 01/09/24 01/09/24 01/09/24 06:59 14:59 22:59 Other: # Voids 1 Weight 43.998 kg 43.998 kg Results CBC & Chem 7: 01/09/24 13:46 01/09/24 13:46 Labs: Abnormal Lab Results - Last 24 Hours (Table) 01/09/24 01/09/24 Range/Units 13:46 13:46 Lymphocytes # 0.4 L (1.0-4.8) k/uL Glucose 122 H (74-99) mg/dL Thrombosis Risk Factor Assmnt - Choose All That Apply Any of the Below Risk Factors Present?: Yes Each Factor Represents 1 point: Abnormal pulmonary function (COPD) Other Risk Factors: Yes Each Risk Factor Represents 2 Points: Malignancy Each Risk Factor Represents 3 Points: Age 75 years or older Thrombosis Risk Factor Assessment Total Risk Factor Score: 6 Thrombosis Risk Factor Assessment Level: High Risk
--- NOTE | 2024-01-09 19:59 | XR ---
EXAMINATION TYPE: XR chest 2V DATE OF EXAM: 01/09/2024 7:38 PM COMPARISON: Chest radiographs from 03/08/2021 CLINICAL INDICATION: Female, 88 years old with history of Lung cancer; [facility] TECHNIQUE: XR chest 2V Frontal and lateral views of the chest. FINDINGS: Lungs/Pleura: Right upper perihilar fullness. There is no evidence of pleural effusion, focal consoli dation, or pneumothorax. Pulmonary vascularity: Unremarkable. Heart/mediastinum: Cardiomediastinal silhouette is unremarkable. Musculoskeletal: No acute osseous pathology. Other findings: None Lines/Tubes: Right internal jugular central venous catheter with distal tip at the cavoatrial junction. Lucent line projects over the right diaphragm. IMPRESSION: Lucent line under the right diaphragm suggesting free air. Further evaluation of the abdomen and pelv is recommended withe CT imaging. Alternatively this could represent summation artifact. [facility], , 01/09/2024 7:57 PM
[2024-01-09] MEDS: HYDROcodone/APAP 5-325MG 1 EACH TAB PO PRN (20:02)
[2024-01-09] MEDS: HYDROmorphone 0.5 MG/0.5 ML SYRINGE IVP PRN (23:15)
[2024-01-10 04:42] LABS: African American GFR (CKD) >90 (>60 ml/min/1.73 sqM); Non-African American GFR(CKD) 80 (>60 ml/min/1.73 sqM)
--- NOTE | 2024-01-10 09:16 | P.PCN ---
Description of Procedure: Preop diagnosis callus left foot plantar aspect and dry scab third toe tenderness on the plantar aspect postop same post debridement measurement is 1 x 0.5 x 0.5 cm with deep culture Left foot was prepped and draped debrided preparatory sterile manner 1% lidocaine plain infiltrated did the debridement down to subcutaneous tissue some devitalized tissue was removed which was sent for deep culture wound was irrigated with saline no active bleeding was noted Medihoney gel applied to the wound which should be changed on daily basis. We will do the duplex with LA bilateral lower extremity
--- NOTE | 2024-01-10 09:51 | P.CONS ---
History of Present Illness - Reason for Consult Consult date: 01/09/24 Foot ulcer Requesting physician: Will Og - Chief Complaint Left foot also swelling redness x weeks - History of Present Illness Patient is a 88-year-old female with a past medical history significant for COPD reflux osteomyelitis lung cancer with the patient has received chemoradiation patient is currently in hospice patient also have a chronic nonhealing wound on the plantar aspect of the left foot that has been there for about 2 months and has been recently admitted at [facility] for the same and has been on multiple courses of antibiotic also and has been on doxycycline patient was noticed to have increasing erythema to the left foot and the hospice nurse recommended to the daughter the patient need to be evaluated in the hospital for further treatment of the left foot there is no clear history of any fever or any chills patient been complaining of significant pain to the left foot especially with by the touch or pressure however no foul- smelling drainage has been reported patient on presentation to the hospital was afebrile and no fever have been called subsequently patient was not tachycardic hypotensive or hypoxic she did have white count of 5.8 creatinine 0.65 electrolytes have been normal liver enzymes are normal patient was started on clindamycin infectious disease was consulted for further management of antibioti c therapy Review of Systems Positive point and negatives has been mentioned in the HPI, complete review of systems was performed and all other systems are negative Past Medical History Past Medical History: Cancer, COPD, GERD/Reflux, Osteoarthritis (OA) Additional Past Medical History / Comment(s): rt lung CA-received radiation and chemo, currently receiving immunotheray, left pelvic fx-using a cane, receive both covid vaccines,migraines when younger, "a lot of heartburn and gas", bronchitis for past 3 months, hiatal hernia, chronic colitis,lung hx bowel obstruction History of Any Multi-Drug Resistant Organisms: None Reported Past Surgical History: Bladder Surgery, Bowel Resection, Hysterectomy Additional Past Surgical History / Comment(s): rt upper lobectomy, rectocele, hemorrhoidectomy, [place] cataracts, surgery for bowel obstruction Past Anesthesia/Blood Transfusion Reactions: No Reported Reaction Past Psychological History: Anxiety Smoking Status: Former smoker Past Alcohol Use History: None Reported Past Drug Use History: None Reported - Past Family History Mother Family Medical History: Cancer Son(s) Family Medical History: Cancer Brother(s) Family Medical History: Deep Vein Thrombosis (DVT) Medications and Allergies Home Medications Medication Instructions Recorded Confirmed Type ALPRAZolam [Xanax] 0.25 mg PO BID PRN 06/16/18 01/09/24 History Aspirin [Adult Low Dose Aspirin EC] 81 mg PO DAILY 06/16/18 01/09/24 History Cyanocobalamin (Vitamin B-12) 1,000 mcg PO DAILY 01/09/24 01/09/24 History [Vitamin B-12] Doxycycline Hyclate 100 mg PO BID 01/09/24 01/09/24 History HYDROcodone/APAP 5-325MG [[place] 1 tab PO Q6HR PRN 01/09/24 01/09/24 History 5-325] L.acidoph,Paracasei, B.lactis 1 cap PO DAILY 01/09/24 01/09/24 History [Probiotic] amLODIPine [Norvasc] 2.5 mg PO DAILY 01/09/24 01/09/24 History guaiFENesin [Mucinex] 600 mg PO BID PRN 01/09/24 01/09/24 History Allergies Allergy/AdvReac Type Severity Reaction Status Date / Time latex Allergy Swelling Verified 01/09/24 14:17 stitches Allergy SWOLLEN Uncoded 08/11/20 15:07 FOOT Physical Exam Vitals: Vital Signs Temp Pulse Resp BP Pulse Ox 01/09/24 11:40 98.2 F 88 18 126/64 93 L Intake and Output 01/09/24 01/09/24 01/09/24 06:59 14:59 22:59 Other: Weight 43.998 kg GENERAL DESCRIPTION: Elderly female lying in bed, no distress. No tachypnea or accessory muscle of respiration use. HEENT: Shows Pallor , no scleral icterus. Oral mucous membrane is dry. NECK: Trachea central, no thyromegaly. LUNGS: Unlabored breathing. Clear to auscultation anteriorly. No wheeze or crackle. HEART: S1, S2, regular rate and rhythm. No loud murmur ABDOMEN: Soft, no tenderness , guarding or rigidity, no organomegaly EXTREMITIES: Left foot did have a diffuse swelling redness with the superficial ulceration on the plantar aspect SKIN: No rash, no masses palpable. NEUROLOGICAL: The patient is awake, alert, oriented x3, mood and affect normal. Results CBC & Chem 7: 01/09/24 13:46 01/10/24 03:42 Labs: Abnormal Lab Results - Last 24 Hours (Table) 01/09/24 01/09/24 Range/Units 13:46 13:46 Lymphocytes # 0.4 L (1.0-4.8) k/uL Glucose 122 H (74-99) mg/dL Assessment and Plan (1) Cellulitis of left foot Current Visit: Yes Status: Acute Code(s): L03.116 - CELLULITIS OF LEFT LOWER LIMB SNOMED Code(s): 31399629456676638 (2) Foot ulcer Current Visit: Yes Status: Acute Code(s): L97.509 - NON-PRESSURE CHRONIC ULCER OTH PRT UNSP FOOT W UNSP SEVERITY SNOMED Code(s): 81829516 (3) Failure of outpatient treatment Current Visit: Yes Status: Acute Code(s): Z78.9 - OTHER SPECIFIED HEALTH STATUS SNOMED Code(s): 596168010 Plan: 1patient presented to hospital with worsening swelling redness to the left foot along with the pain in this patient who did have a chronic ulcer on the plantar aspect of the left foot and has failed outpatient oral antibiotic therapy x- rays were negative for any bony destruction. 2local culture has been obtained to guide further antibiotic therapy. 3discontinue clindamycin. 4we will start the patient on vancomycin pharmacy to dose pending culture completion. We will follow on clinical condition and cultures to further adjust medication if needed Thank you for this consultation we will follow the patient along with you Dictation was produced using [employer] dictation software. please excuse any grammatical, word or spelling errors. Time with Patient: Greater than 30
[2024-01-10] MEDS: LACTOBACILLUS ACIDOPHILUS/PECT 1 EACH CAPSULE PO SCH (10:16)
[2024-01-10] MEDS: ASPIRIN 81 MG PO SCH (10:16)
[2024-01-10] MEDS: CYANOCOBALAMIN 500 MCG TAB PO SCH (10:16)
--- NOTE | 2024-01-10 10:35 | US ---
EXAMINATION TYPE: US arterial LE single level DATE OF EXAM: 01/10/2024 10:25 AM CLINICAL INDICATION: Female, 88 years old with history of check circulation georgie legs; Pressure Ulcer bottom of left foot TECHNIQUE: Systolic pressures were taken of the upper and lower extremity arteries with ankle-brachia l indices and toe brachial indices calculated bilaterally. History of: Smoker: Yes Hypertension: No Diabetic: No Hyperlipidemia: No TIA/CVA: No Previous Vascular Surgery: No CAD: No MT: No Vascular Ulcers: Yes Claudication: Yes Gangrene: No FINDINGS: Doppler Waveforms: Right: Not able to assess Left: Not able to assess Pulse Volume Recording: Pressure Gradients: Brachial Artery systolic pressure: Right systolic pressure: 150 Left systolic pressure: 150 Posterior Tibial artery systolic pressure: Right: Not able to obtain Left: 40 Dorsalis Pedis artery systolic pressure: Right: 48 Left: Not able to obtain Toe artery systolic pressure: Right: Not done Left: Not done Ankle-Brachial Indices: Right: 0.32 Left: 0.27 (Vessel hardening > 1.4; Normal 0.9 - 1.4, Moderate 0.7 - 0.9, Severe 0.5-0.7) Toe Brachial Indices: Right: Not done Left: Not done (Normal > 0.6; Mild 0.35 - 0.59, Moderate 0.12 - 0.34, Severe <0.12) Difficult exam due to potential pathology, technologist searched for arterial signals for 40 minutes with no reproducible signals in bilateral lower extremities. Discontinued pressures due to foot ulcer bleeding after half inflating cuff at ankle IMPRESSION: Limited exam due to patient body habitus. Findings suggestive of severe bilateral peripheral vascular disease. [facility], , 01/10/2024 10:33 AM
[2024-01-10] MEDS: amLODIPine 2.5 MG TAB PO SCH (11:33)
[2024-01-10] MEDS: VANCOMYCIN 750 MG in SODIUM CHLORIDE 0.9% 250 ML IVPB SCH (12:10)
--- NOTE | 2024-01-10 14:22 | P.PN ---
Progress Note - Text Progress Note Date: 01/10/24 Chief Complaint: Left foot pain This is a very pleasant 88-year-old patient who follows with Dr. Renteria. Medical history includes COPD, GERD, osteoarthritis, chronic colitis. Patient is extremely hard of hearing. But able to give a history. She was diagnosed with right lung cancer 24 years ago. Had partial lung removed followed by radiation and chemotherapy. Did well. About 4 years ago she developed cancer again what she describes in the tubes of the lung. And she was given chemoradiation. Hence she was told that nothing further can be done. For last 2 years patient has been hospice. But otherwise doing fair. Her appetite is good. Normally has a bowel movement every other day. No chronic pain. Except now she presents for left foot infection that she has had for few weeks. She follows with automatic machines supervisor Dr. Mcmahon. Has received a few course of antibiotics. It has become more painful. She been under hospice for close to 2 years. Hospice is planning to take her off the hospice service. Denies any obvious fever and chills. States she also has Raynaud's. Does not follow with any lung doctor. January 09: Patient had I&D carried out after left plantar ulcer by Dr. Gonzalez. Dressing in place. On IV vancomycin per ID. Tolerating a diet. Active Medications Hydrocodone Bitart/Acetaminophen (Hydrocodone/Apap 5-325mg 1 Each Tab) 1 each PO Q6HR PRN PRN Reason: Pain Last Admin: 01/10/24 12:23 Dose: 1 each Alprazolam (Alprazolam 0.25 Mg Tab) 0.25 mg PO BID PRN PRN Reason: Anxiety Amlodipine Besylate (Amlodipine 2.5 Mg Tab) 2.5 mg PO DAILY [facility] Last Admin: 01/10/24 11:33 Dose: 2.5 mg Aspirin (Aspirin 81 Mg) 81 mg PO DAILY [facility] Last Admin: 01/10/24 10:16 Dose: 81 mg Cyanocobalamin (Cyanocobalamin 500 Mcg Tab) 1,000 mcg PO DAILY [facility] Last Admin: 01/10/24 10:16 Dose: 1,000 mcg Guaifenesin (Guaifenesin 600 Mg Tablet.Er) 600 mg PO BID PRN PRN Reason: Cough Hydromorphone HCl (Hydromorphone 2 Mg/Ml 1 Ml Syringe) 1 mg IVP Q3HR PRN PRN Reason: Severe Pain (Scale 7 to 10) Sodium Chloride (Saline 0.9%) 1,000 mls @ 20 mls/hr IV .Q24H [facility] Last Admin: 01/10/24 12:19 Dose: Not Given Vancomycin HCl 750 mg/ Sodium (Chloride) 250 mls @ 125 mls/hr IVPB Q24H [facility] Last Admin: 01/10/24 12:10 Dose: 125 mls/hr Lactobacillus Acidophilus (Lactobacillus Acidophilus/Pect 1 Each Capsule) 1 each PO DAILY [facility] Last Admin: 01/10/24 10:16 Dose: 1 each Naloxone HCl (Naloxone 0.4 Mg/Ml 1 Ml Vial) 0.2 mg IV Q2M PRN PRN Reason: Opioid Reversal Social history: Son lives with her. She smoked a pack a day for 40 years stopped 18 years ago. Does use a walker. Physical examination: VITAL SIGNS: 97.9, 85, 16, 150 x 70, 96% room air GENERAL: BMI 21, laying in bed EYES: Pupils equal. Conjunctiva maurice l. HEENT: External appearance of nose and ears normal, oral cavity grossly normal. Extremely hard of hearing NECK: JVD not raised; masses not palpable. HEART: First and second heart sounds are normal; no edema. LUNGS: Respiratory rate normal; creased breath sounds. ABDOMEN: Soft, nontender, liver spleen not palpable, no masses palpable. PSYCH: Alert and oriented x3; mood and affect maurice l. MUSCULOSKELETAL:No Clubbing/cyanosis;muscles-grossly intact. OA especially in the hands and other joints Extremities: Left foot dressing in place INVESTIGATIONS, reviewed in the clinical context: January 09, 2024: White count 5.8 hemoglobin 12 platelets 340 sodium 137 potassium 4.5 creatinine 0.65 lactic acid 0.9 Left foot 3 views: Generalized forefoot and midfoot soft tissue swelling. Ulcer along the ball of the foot. No radiographic evidence of osteolysis. Assessment plan: -Left foot wound on the plantar surface. With surrounding cellulitis. Patient has an ulcer on the plantar surface. Surrounding area is very tender and boggy. Possible underlying cellulitis. Patient has several course of antibiotics outpatient. Was following with automatic machines supervisor Dr. Hicks.: Possible foot abscess Patient was getting doxycycline outpatient Patient has decreased circulation. Vascular surgery Dr. Gonzalez carried out I&D today. Dressing in place. -Lung cancer: Patient initially had cancer in the right lung 24 years ago. This was locally resected. Followed by chemo and and radiation. Subsequently patient was diagnosed with cancer in the lung about 4 years ago. Treated locally with chemo and radiation. Was told nothing further can be done. Does a PET scan from 2020 showing: Worsening hypermetabolic uptake at the level of the right paratracheal suprahilar region extending anteriorly and superiorly with worsening masslike consolidation. Some right-sided volume loss. Additional consolidation and atelectatic change extending to the posterior lower lobe. Patient states she was told previously that no further treatment could be done. Hence she was in the hospital for last 2 years. Is being followed by [facility] as outpatient. -Extremely hard of hearing, has hearing aids -Chronic gait dysfunction, uses a walker at baseline -Moderate protein calorie malnutrition, likely for underlying malignancy Ensure 1 can 3 times daily -COPD in a previous smoker Albuterol as needed -Primary osteoarthritis Pain medication as needed -Essential hypertension Amlodipine 2.5 mg daily -DNR [patient is under hospice care as outpatient] Continue antibiotics. Discussed with patient. Follow with ID and vascular. Past Medical History Past Medical History: Cancer, COPD, GERD/Reflux, Osteoarthritis (OA) Additional Past Medical History / Comment(s): rt lung CA-received radiation and chemo, left pelvic fx-using a cane, receive both covid vaccines,migraines when younger, "a lot of heartburn and gas", bronchitis for past 3 months, hiatal hernia, chronic colitis,lung hx bowel obstruction History of Any Multi-Drug Resistant Organisms: None Reported Past Surgical History: Bladder Surgery, Bowel Resection, Hysterectomy Additional Past Surgical History / Comment(s): rt upper lobectomy, rectocele, hemorrhoidectomy, ge[place]ie cataracts, surgery for bowel obstruction Past Anesthesia/Blood Transfusion Reactions: No Reported Reaction Past Psychological History: Anxiety Smoking Status: Former smoker Past Alcohol Use History: None Reported Additional Past Alcohol Use History / Comment(s): quit smoking 18 yrs ago, smoked for 40 yrs, 1 PPD Past Drug Use History: None Reported
--- NOTE | 2024-01-10 14:57 | P.PN ---
Subjective Progress Note Date: 01/10/24 Principal diagnosis: Reason for follow-up is left foot wound and cellulitis Patient is a 88-year-old female with a past medical history significant for COPD reflux osteomyelitis lung cancer with the patient has received chemoradiation patient is currently in hospice patient also have a chronic nonhealing wound on the plantar aspect of the left foot, present to hospital with worsening wound and cellulitis in this patient who is status post bedside debridement of the wound by vascular surgery on 01/10/2024. On today's evaluation that is 01/10/2024, Patient is afebrile patient is currently on room air and denies having any shortness of breath, the patient denies any chest pain or cough, the patient denies any nausea vomiting did not have any abdominal pain and no diarrhea patient pain to the left foot has slightly decreased in intensity. Patient did have a creatinine 0.64 cultures currently pending Objective - Vital Signs Vital signs: Vital Signs Temp 97.9 F 01/10/24 07:31 Pulse 85 01/10/24 08:45 Resp 16 01/10/24 08:45 BP 150/70 01/10/24 07:31 Pulse Ox 96 01/10/24 07:31 FiO2 Intake & Output 01/09/24 01/10/24 01/10/24 18:59 06:59 18:59 Intake Total 590 Balance 590 Weight 43.998 kg Intake: Oral 590 Other: Voiding Method Bedside Commode Bedside Commode # Voids 1 5 1 - Exam GENERAL DESCRIPTION: An elderly male lying in bed in no distress RESPIRATORY SYSTEM: Unlabored breathing , decreased breath sounds at bases HEART: S1 S2 regular rate and rhythm , ABDOMEN: Soft , no tenderness EXTREMITIES: Left foot wound is currently dressed - Labs CBC & Chem 7: 01/09/24 13:46 01/10/24 03:42 Labs: Abnormal Lab Results - Last 24 Hours (Table) 01/09/24 01/09/24 Range/Units 13:46 13:46 Lymphocytes # 0.4 L (1.0-4.8) k/uL Glucose 122 H (74-99) mg/dL Assessment and Plan (1) Cellulitis of left foot Current Visit: Yes Status: Acute Code(s): L03.116 - CELLULITIS OF LEFT LOWER LIMB SNOMED Code(s): 64179377637158160 (2) Foot ulcer Current Visit: Yes Status: Acute Code(s): L97.509 - NON-PRESSURE CHRONIC ULCER OTH PRT UNSP FOOT W UNSP SEVERITY SNOMED Code(s): 51518011 (3) Failure of outpatient treatment Current Visit: Yes Status: Acute Code(s): Z78.9 - OTHER SPECIFIED HEALTH STATUS SNOMED Code(s): 309498972 Plan: 1patient presented to hospital with worsening swelling redness to the left foot along with the pain in this patient who did have a chronic ulcer on the plantar aspect of the left foot and has failed outpatient oral antibiotic therapy x-rays were negative for any bony destruction. 2patient did have bedside debridement of the wound and culture which will be fo llowed 3for now continue with vancomycin pharmacy to dose pending culture completion. Dictation was produced using [employer] dictation software. please excuse any grammatical, word or spelling errors.
[2024-01-10] MEDS: ALPRAZolam 0.25 MG TAB PO PRN (21:07)
[2024-01-11 06:33] LABS: African American GFR (CKD) >90 (>60 ml/min/1.73 sqM); Non-African American GFR(CKD) 87 (>60 ml/min/1.73 sqM)
[2024-01-11] MEDS: LACTULOSE 20 GM/30 ML CUP PO ONE (11:51)
--- NOTE | 2024-01-11 14:31 | P.PN ---
Progress Note - Text Progress Note Date: 01/11/24 Chief Complaint: Left foot pain This is a very pleasant 88-year-old patient who follows with Dr. Renteria. Medical history includes COPD, GERD, osteoarthritis, chronic colitis. Patient is extremely hard of hearing. But able to give a history. She was diagnosed with right lung cancer 24 years ago. Had partial lung removed followed by radiation and chemotherapy. Did well. About 4 years ago she developed cancer again what she describes in the tubes of the lung. And she was given chemoradiation. Hence she was told that nothing further can be done. For last 2 years patient has been hospice. But otherwise doing fair. Her appetite is good. Normally has a bowel movement every other day. No chronic pain. Except now she presents for left foot infection that she has had for few weeks. She follows with new account interviewer Dr. Mcmahon. Has received a few course of antibiotics. It has become more painful. She been under hospice for close to 2 years. Hospice is planning to take her off the hospice service. Denies any obvious fever and chills. States she also has Raynaud's. Does not follow with any lung doctor. January 09: Patient had I&D carried out after left plantar ulcer by Dr. Gonzalez. Dressing in place. On IV vancomycin per ID. Tolerating a diet. January 10: Laying in bed. Pain reasonably well-controlled. Tolerating diet. Blood cultures coming back initially positive. Continue vancomycin. Active Medications Hydrocodone Bitart/Acetaminophen (Hydrocodone/Apap 5-325mg 1 Each Tab) 1 each PO Q6HR PRN PRN Reason: Pain Last Admin: 01/10/24 12:23 Dose: 1 each Alprazolam (Alprazolam 0.25 Mg Tab) 0.25 mg PO BID PRN PRN Reason: Anxiety Last Admin: 01/10/24 21:07 Dose: 0.25 mg Amlodipine Besylate (Amlodipine 2.5 Mg Tab) 2.5 mg PO DAILY [facility] Last Admin: 01/11/24 08:14 Dose: 2.5 mg Aspirin (Aspirin 81 Mg) 81 mg PO DAILY [facility] Last Admin: 01/11/24 08:14 Dose: 81 mg Cyanocobalamin (Cyanocobalamin 500 Mcg Tab) 1,000 mcg PO DAILY [facility] Last Admin: 01/11/24 08:14 Dose: 1,000 mcg Guaifenesin (Guaifenesin 600 Mg Tablet.Er) 600 mg PO BID PRN PRN Reason: Cough Hydromorphone HCl (Hydromorphone 2 Mg/Ml 1 Ml Syringe) 1 mg IVP Q3HR PRN PRN Reason: Severe Pain (Scale 7 to 10) Sodium Chloride (Saline 0.9%) 1,000 mls @ 20 mls/hr IV .Q24H [facility] Last Admin: 01/10/24 12:19 Dose: Not Given Vancomycin HCl 750 mg/ Sodium (Chloride) 250 mls @ 125 mls/hr IVPB Q24H [facility] Last Admin: 01/11/24 11:51 Dose: 125 mls/hr Lactobacillus Acidophilus (Lactobacillus Acidophilus/Pect 1 Each Capsule) 1 each PO DAILY [facility] Last Admin: 01/11/24 08:14 Dose: 1 each Naloxone HCl (Naloxone 0.4 Mg/Ml 1 Ml Vial) 0.2 mg IV Q2M PRN PRN Reason: Opioid Reversal Social history: Son lives with her. She smoked a pack a day for 40 years stopped 18 years ago. Does use a walker. Physical examination: VITAL SIGNS: 97.7, 99, 16, 149 x 75, 97% room air GENERAL: BMI 21, comfortable in bed EYES: Pupils equal. Conjunctiva maurice l. HEENT: External appearance of nose and ears normal, oral cavity grossly normal. Extremely hard of hearing NECK: JVD not raised; masses not palpable. HEART: First and second heart sounds are normal; no edema. LUNGS: Respiratory rate normal; creased breath sounds. ABDOMEN: Soft, nontender, liver spleen not palpable, no masses palpable. PSYCH: Alert and oriented x3; mood and affect maurice l. MUSCULOSKELETAL:No Clubbing/cyanosis;muscles-grossly intact. OA especially in the hands and other joints Extremities: Left foot dressing in place INVESTIGATIONS, reviewed in the clinical context: Blood culture [January 08] coagulase-negative staph January 09, 2024: White count 5.8 hemoglobin 12 platelets 340 sodium 137 potassium 4.5 creatinine 0.65 lactic acid 0.9 Left foot 3 views: Generalized forefoot and midfoot soft tissue swelling. Ulcer along the ball of the foot. No radiographic evidence of osteolysis. Assessment plan: -Left foot wound on the plantar surface. With surrounding cellulitis. Patient has an ulcer on the plantar surface. Surrounding area is very tender and boggy. Possible underlying cellulitis. Patient has several course of antibiotics outpatient. Was following with new account interviewer Dr. Hicks.: Possible foot abscess Blood cultures [id number] staph, possible contaminant Patient was getting doxycycline outpatient Patient has decreased circulation. Vascular surgery Dr. Gonzalez carried out I&D today. Dressing in place. -Lung cancer: Patient initially had cancer in the right lung 24 years ago. This was locally resected. Followed by chemo and and radiation. Subsequently patient was diagnosed with cancer in the lung about 4 years ago. Treated locally with chemo and radiation. Was told nothing further can be done. Does a PET scan from 2020 showing: Worsening hypermetabolic uptake at the level of the right paratracheal suprahilar region extending anteriorly and superiorly with worsening masslike consolidation. Some right-sided volume loss. Additional consolidation and atelectatic change extending to the posterior lower lobe. Patient states she was told previously that no further treatment could be done. Hence she was in the hospital for last 2 years. Is being followed by [facility] as outpatient. -Extremely hard of hearing, has hearing aids -Chronic gait dysfunction, uses a walker at baseline -Moderate protein calorie malnutrition, likely for underlying malignancy Ensure 1 can 3 times daily -COPD in a previous smoker Albuterol as needed -Primary osteoarthritis Pain medication as needed -Essential hypertension Amlodipine 2.5 mg daily -DNR [patient is under hospice care as outpatient] Continue antibiotic. Blood culture results noted. Repeat cultures done. Past Medical History Past Medical History: Cancer, COPD, GERD/Reflux, Osteoarthritis (OA) Additional Past Medical History / Comment(s): rt lung CA-received radiation and chemo, left pelvic fx-using a cane, receive both covid vaccines,migraines when younger, "a lot of heartburn and gas", bronchitis for past 3 months, hiatal hernia, chronic colitis,lung hx bowel obstruction History of Any Multi-Drug Resistant Organisms: None Reported Past Surgical History: Bladder Surgery, Bowel Resection, Hysterectomy Additional Past Surgical History / Comment(s): rt upper lobectomy, rectocele, hemorrhoidectomy, ge[place]ie cataracts, surgery for bowel obstruction Past Anesthesia/Blood Transfusion Reactions: No Reported Reaction Past Psychological History: Anxiety Smoking Status: Former smoker Past Alcohol Use History: None Reported Additional Past Alcohol Use History / Comment(s): quit smoking 18 yrs ago, smoked for 40 yrs, 1 PPD Past Drug Use History: None Reported
--- NOTE | 2024-01-11 15:02 | P.PN ---
Subjective Progress Note Date: 01/11/24 Principal diagnosis: Reason for follow-up is left foot wound and cellulitis Patient is a 88-year-old female with a past medical history significant for COPD reflux osteomyelitis lung cancer with the patient has received chemoradiation patient is currently in hospice patient also have a chronic nonhealing wound on the plantar aspect of the left foot, present to hospital with worsening wound and cellulitis in this patient who is status post bedside debridement of the wound by vascular surgery on 01/10/2024. On today's evaluation that is 01/11/2024, patient has been afebrile, patient is breathing comfortably and is currently on room air, patient denies having any s ignificant cough no chest pain, patient denies nausea vomiting or diarrhea and no abdominal pain pain to the left foot has decreased in intensity. Patient did have creatinine 0.50 cultures currently pending blood culture with coagulase-negative staph Objective - Vital Signs Vital signs: Vital Signs Temp 98.0 F 01/11/24 07:18 Pulse 85 01/11/24 08:45 Resp 16 01/11/24 08:45 BP 125/67 01/11/24 07:18 Pulse Ox 96 01/11/24 07:18 FiO2 Intake & Output 01/10/24 01/11/24 01/11/24 19:59 06:59 18:59 Intake Total Balance Intake: Intake, IV Titration Amount Sodium Chloride 0.9% 1, 000 ml @ 20 mls/hr IV . Q24H [facility] Rx#:[id number] Oral Other: Voiding Method Bedside Commode # Voids # Bowel Movements - Exam GENERAL DESCRIPTION: An elderly male lying in bed in no distress RESPIRATORY SYSTEM: Unlabored breathing , decreased breath sounds at bases HEART: S1 S2 regular rate and rhythm , ABDOMEN: Soft , no tenderness EXTREMITIES: Left foot wound is currently dressed - Labs CBC & Chem 7: 01/09/24 13:46 01/11/24 05:35 Labs: Abnormal Lab Results - Last 24 Hours (Table) 01/11/24 Range/Units 05:35 Creatinine 0.50 L (0.52-1.04) mg/dL Microbiology - Last 24 Hours (Table) 01/09/24 13:46 Blood Culture Gram Stain - Preliminary Blood Blood Culture - Preliminary Coagulase Negative Staph Molecular ID 01/10/24 12:00 Gram Stain - Preliminary Foot - Left 01/09/24 15:10 Gram Stain - Preliminary Foot - Left Wound Culture - Preliminary Assessment and Plan (1) Cellulitis of left foot Current Visit: Yes Status: Acute Code(s): L03.116 - CELLULITIS OF LEFT LOWER LIMB SNOMED Code(s): 05891851485814640 (2) Foot ulcer Current Visit: Yes Status: Acute Code(s): L97.509 - NON-PRESSURE CHRONIC ULCER OTH PRT UNSP FOOT W UNSP SEVERITY SNOMED Code(s): 86348676 (3) Failure of outpatient treatment Current Visit: Yes Status: Acute Code(s): Z78.9 - OTHER SPECIFIED HEALTH STATUS SNOMED Code(s): 604559600 Plan: 1patient presented to hospital with worsening swelling redness to the left foot along with the pain in this patient who did have a chronic ulcer on the plantar aspect of the left foot and has failed outpatient oral antibiotic therapy x-rays were negative for any bony destruction. 2patient did have bedside debridement of the wound and culture are currently pending 3positive blood culture with coagulase-negative staph more likely skin contamination 4we will continue with vancomycin pharmacy to dose pending culture completion determine discharge antibiotics. Dictation was produced using [employer] dictation software. please excuse any grammatical, word or spelling errors. Time with Patient: Less than 30
[2024-01-11] MEDS: ENOXAPARIN 40 MG/0.4 ML SYRINGE SQ SCH (15:39)
[2024-01-12 05:39] LABS: Basophils % (A) 0 %; Eosinophils # (A) 0.1 k/uL (0-0.7); Eosinophils % (A) 1 %; HCT 35.7 % (34.0-46.0); HGB 11.4 gm/dL (11.4-16.0); Lymphocytes # (A) 0.7 k/uL (1.0-4.8); Lymphocytes % (A) 11 %; MCH 30.3 pg (25.0-35.0); MCHC 31.9 g/dL (31.0-37.0); MCV 94.9 fL (80.0-100.0); Mean Platelet Volume 7.2; Monocytes # (A) 0.5 k/uL (0-1.0); Monocytes % (A) 7 %; Neutrophils # (A) 5.1 k/uL (1.3-7.7); Neutrophils % (A) 79 %; Platelet Count 329 k/uL (150-450); RBC 3.76 m/uL (3.80-5.40); RDW 13.4 % (11.5-15.5); WBC 6.5 k/uL (3.8-10.6)
[2024-01-12 05:50] LABS: African American GFR (CKD) >90 (>60 ml/min/1.73 sqM); Anion Gap 5 mmol/L; Blood Urea Nitrogen 14 mg/dL (7-17); Calcium 8.7 mg/dL (8.4-10.2); Carbon Dioxide 20 mmol/L (22-30); Chloride 111 mmol/L (98-107); Glucose 88 mg/dL (74-99); Non-African American GFR(CKD) 87 (>60 ml/min/1.73 sqM); Potassium 3.6 mmol/L (3.5-5.1); Sodium 136 mmol/L (137-145)
--- NOTE | 2024-01-12 12:12 | P.PN ---
Subjective Progress Note Date: 01/12/24 Principal diagnosis: Reason for follow-up is left foot wound and cellulitis Patient is a 88-year-old female with a past medical history significant for COPD reflux osteomyelitis lung cancer with the patient has received chemoradiation patient is currently in hospice patient also have a chronic nonhealing wound on the plantar aspect of the left foot, present to hospital with worsening wound and cellulitis in this patient who is status post bedside debridement of the wound by vascular surgery on 01/10/2024. On today's evaluation that is 01/12/2024, Patient is afebrile this morning patient denies having any chest pain shortness of breath or cough, the patient is currently on room air, patient denies any abdominal pain no diarrhea no nausea no vomiting patient mention pain to the left foot has decreased in intensity. Patient white count 6.5, creatinine 0.49 local culture with Marilin not albicans, subsequent deep culture pending blood culture with coagulase-negative staph Objective - Vital Signs Vital signs: Vital Signs Temp 97.9 F 01/12/24 07:13 Pulse 91 01/12/24 07:13 Resp 18 01/12/24 07:13 BP 154/75 01/12/24 07:13 Pulse Ox 90 L 01/12/24 07:13 FiO2 Intake & Output 01/11/24 01/12/24 01/12/24 18:59 06:59 18:59 Intake Total 590 Balance 590 Intake: Oral 590 Other: Voiding Method Bedside Commode Bedside Commode # Voids 1 4 # Bowel Movements 1 - Exam GENERAL DESCRIPTION: An elderly male lying in bed in no distress RESPIRATORY SYSTEM: Unlabored breathing , decreased breath sounds at bases HEART: S1 S2 regular rate and rhythm , ABDOMEN: Soft , no tenderness EXTREMITIES: Left foot wound is drying out overall redness has decreased - Labs CBC & Chem 7: 01/12/24 05:17 01/12/24 05:17 Labs: Abnormal Lab Results - Last 24 Hours (Table) 01/12/24 01/12/24 Range/Units 05:17 05:17 RBC 3.76 L (3.80-5.40) m/uL Lymphocytes # 0.7 L (1.0-4.8) k/uL Sodium 136 L (137-145) mmol/L Chloride 111 H (98-107) mmol/L Carbon Dioxide 20 L (22-30) mmol/L Creatinine 0.49 L (0.52-1.04) mg/dL Microbiology - Last 24 Hours (Table) 01/09/24 15:10 Gram Stain - Final Foot - Left Wound Culture - Final Marilin species, not albicans 01/10/24 12:00 Gram Stain - Preliminary Foot - Left Wound Culture - Preliminary 01/09/24 13:46 Blood Culture Gram Stain - Preliminary Blood Blood Culture - Preliminary Coagulase Negative Staph Molecular ID Assessment and Plan (1) Cellulitis of left foot Current Visit: Yes Status: Acute Code(s): L03.116 - CELLULITIS OF LEFT LOWER LIMB SNOMED Code(s): 89510595100366668 (2) Foot ulcer Current Visit: Yes Status: Acute Code(s): L97.509 - NON-PRESSURE CHRONIC ULCER OTH PRT UNSP FOOT W UNSP SEVERITY SNOMED Code(s): 18679087 (3) Failure of outpatient treatment Current Visit: Yes Status: Acute Code(s): Z78.9 - OTHER SPECIFIED HEALTH S TAT[place] SNOMED Code(s): 540944327 Plan: 1patient presented to hospital with worsening swelling redness to the left foot along with the pain in this patient who did have a chronic ulcer on the plantar aspect of the left foot and has failed outpatient oral antibiotic therapy x-rays were negative for any bony destruction. 2patient did have bedside debridement of the wound and culture are currently pending, superficial culture grew Marilin more likely colonizer/contaminant 3positive blood culture with coagulase-negative staph more likely skin contamination 4we will continue with vancomycin pharmacy to dose pending deep culture completion to determine discharge antibiotic Dictation was produced using [employer] dictation software. please excuse any grammatical, word or spelling errors. Time with Patient: Less than 30
[2024-01-12] MEDS: LACTULOSE 20 GM/30 ML CUP PO ONE (13:37)
--- NOTE | 2024-01-12 16:16 | P.PN ---
Progress Note - Text 88-year-old white female history of lung cancer came with pain and tenderness to left foot plantar aspect with some cellulitis patient had a debridement and culture patient is under care of infectious disease patient has no fever or chills present continue with local wound care and IV antibiotic
--- NOTE | 2024-01-12 17:02 | P.PN ---
Progress Note - Text Progress Note Date: 01/12/24 Chief Complaint: Left foot pain This is a very pleasant 88-year-old patient who follows with Dr. Renteria. Medical history includes COPD, GERD, osteoarthritis, chronic colitis. Patient is extremely hard of hearing. But able to give a history. She was diagnosed with right lung cancer 24 years ago. Had partial lung removed followed by radiation and chemotherapy. Did well. About 4 years ago she developed cancer again what she describes in the tubes of the lung. And she was given chemoradiation. Hence she was told that nothing further can be done. For last 2 years patient has been hospice. But otherwise doing fair. Her appetite is good. Normally has a bowel movement every other day. No chronic pain. Except now she presents for left foot infection that she has had for few weeks. She follows with [employer] operator Dr. Mcmahon. Has received a few course of antibiotics. It has become more painful. She been under hospice for close to 2 years. Hospice is planning to take her off the hospice service. Denies any obvious fever and chills. States she also has Raynaud's. Does not follow with any lung doctor. January 09: Patient had I&D carried out after left plantar ulcer by Dr. Gonzalez. Dressing in place. On IV vancomycin per ID. Tolerating a diet. January 10: Laying in bed. Pain reasonably well-controlled. Tolerating diet. Blood cultures coming back initially positive. Continue vancomycin. January 11: Comfortable. In bed. Cultures pending. On vancomycin. Wound care per Dr. Gonzalez Active Medications Hydrocodone Bitart/Acetaminophen (Hydrocodone/Apap 5-325mg 1 Each Tab) 1 each PO Q6HR PRN PRN Reason: Pain Last Admin: 01/12/24 11:59 Dose: 1 each Alprazolam (Alprazolam 0.25 Mg Tab) 0.25 mg PO BID PRN PRN Reason: Anxiety Last Admin: 01/10/24 21:07 Dose: 0.25 mg Amlodipine Besylate (Amlodipine 2.5 Mg Tab) 2.5 mg PO DAILY [facility] Last Admin: 01/12/24 08:37 Dose: 2.5 mg Aspirin (Aspirin 81 Mg) 81 mg PO DAILY [facility] Last Admin: 01/12/24 08:37 Dose: 81 mg Cyanocobalamin (Cyanocobalamin 500 Mcg Tab) 1,000 mcg PO DAILY [facility] Last Admin: 01/12/24 08:37 Dose: 1,000 mcg Enoxaparin Sodium (Enoxaparin 40 Mg/0.4 Ml Syringe) 40 mg SQ DAILY [facility] Last Admin: 01/12/24 08:37 Dose: 40 mg Guaifenesin (Guaifenesin 600 Mg Tablet.Er) 600 mg PO BID PRN PRN Reason: Cough Hydromorphone HCl (Hydromorphone 2 Mg/Ml 1 Ml Syringe) 1 mg IVP Q3HR PRN PRN Reason: Severe Pain (Scale 7 to 10) Vancomycin HCl 750 mg/ Sodium (Chloride) 250 mls @ 125 mls/hr IVPB Q24H [facility] Last Admin: 01/12/24 12:02 Dose: 125 mls/hr Lactobacillus Acidophilus (Lactobacillus Acidophilus/Pect 1 Each Capsule) 1 each PO DAILY [facility] Last Admin: 01/12/24 08:37 Dose: 1 each Naloxone HCl (Naloxone 0.4 Mg/Ml 1 Ml Vial) 0.2 mg IV Q2M PRN PRN Reason: Opioid Reversal Social history: Son lives with her. She smoked a pack a day for 40 years stopped 18 years ago. Does use a walker. Physical examination: VITAL SIGNS: 98.6, 59, 16, 132/73, 96% on 2 L GENERAL: BMI 21, comfortable in bed EYES: Pupils equal. Conjunctiva maurice l. HEENT: External appearance of nose and ears normal, oral cavity grossly normal. Extremely hard of hearing NECK: JVD not raised; masses not palpable. HEART: First and second heart sounds are normal; no edema. LUNGS: Respiratory rate normal; creased breath sounds. ABDOMEN: Soft, nontender, liver spleen not palpable, no masses palpable. PSYCH: Alert and oriented x3; mood and affect maurice l. MUSCULOSKELETAL:No Clubbing/cyanosis;muscles-grossly intact. OA especially in the hands and other joints Extremities: Left foot dressing in place INVESTIGATIONS, reviewed in the clinical context: Lower extremity LA: Suggestive of severe bilateral peripheral arterial disease. LA on the right 0.32. On the left 0.27. January 11: White count 6.5 hemoglobin 11.4 platelets 329 potassium 3.6 creatinine 0.49 Blood culture [January 08] coagulase-negative staph January 09, 2024: White count 5.8 hemoglobin 12 platelets 340 sodium 137 potassium 4.5 creatinine 0.65 lactic acid 0.9 Left foot 3 views: Generalized forefoot and midfoot soft tissue swelling. Ulcer along the ball of the foot. No radiographic evidence of osteolysis. Assessment plan: -Left foot wound on the plantar surface. With surrounding cellulitis. Patient has an ulcer on the plantar surface. Surrounding area is very tender and boggy. Possible underlying cellulitis. Patient has several course of antibiotics outpatient. Was following with [employer] operator Dr. Hicks.: Possible foot abscess Blood cultures [id number] staph, possible contaminant Failed outpatient oral treatment with doxycycline Patient has decreased circulation. Vascular surgery Dr. Gonzalez carried out I&D . Dressing in place. -Lung cancer: Patient initially had cancer in the right lung 24 years ago. This was locally resected. Followed by chemo and and radiation. Subsequently patient was diagnosed with cancer in the lung about 4 years ago. Treated locally with chemo and radiation. Was told nothing further can be done. Does a PET scan from 2020 showing: Worsening hypermetabolic uptake at the level of the right paratracheal suprahilar region extending anteriorly and superiorly with worsening masslike consolidation. Some right-sided volume loss. Additional consolidation and atelectatic change extending to the posterior lower lobe. Patient states she was told previously that no further treatment could be done. Hence she was in the hospital for last 2 years. Is being followed by [facility] as outpatient. 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 -Moderate protein calorie malnutrition, likely for underlying malignancy Ensure 1 can 3 times daily -COPD in a previous smoker Albuterol as needed -Primary osteoarthritis Pain medication as needed -Essential hypertension Amlodipine 2.5 mg daily -DNR [patient is under hospice care as outpatient] Add Lipitor for PAD. Cultures pending. Discussed with patient. Wound care to continue. Past Medical History Past Medical History: Cancer, COPD, GERD/Reflux, Osteoarthritis (OA) Additional Past Medical History / Comment(s): rt lung CA-received radiation and chemo, left pelvic fx-using a cane, receive both covid vaccines,migraines when younger, "a lot of heartburn and gas", bronchitis for past 3 months, hiatal hernia, chronic colitis,lung hx bowel obstruction History of Any Multi-Drug Resistant Organisms: None Reported Past Surgical History: Bladder Surgery, Bowel Resection, Hysterectomy Additional Past Surgical History / Comment(s): rt upper lobectomy, rectocele, hemorrhoidectomy, georgie cataracts, surgery for bowel obstruction Past Anesthesia/Blood Transfusion Reactions: No Reported Reaction Past Psychological History: Anxiety Smoking Status: Former smoker Past Alcohol Use History: None Reported Additional Past Alcohol Use History / Comment(s): quit smoking 18 yrs ago, smoked for 40 yrs, 1 PPD Past Drug Use History: None Reported
[2024-01-12] MEDS: ATORVASTATIN 40 MG TAB PO SCH (21:16)
[2024-01-13 12:10] LABS: African American GFR (CKD) >90 (>60 ml/min/1.73 sqM); Non-African American GFR(CKD) 89 (>60 ml/min/1.73 sqM)
--- NOTE | 2024-01-13 12:29 | P.PN ---
Subjective Progress Note Date: 01/13/24 Principal diagnosis: Reason for follow-up is left foot wound and cellulitis Patient is a 88-year-old female with a past medical history significant for COPD reflux osteomyelitis lung cancer with the patient has received chemoradiation patient is currently in hospice patient also have a chronic nonhealing wound on the plantar aspect of the left foot, present to hospital with worsening wound and cellulitis in this patient who is status post bedside debridement of the wound by vascular surgery on 01/10/2024. On today's evaluation that is 01/13/2024,the patient denies any fever or any chills, patient is breathing comfortably on 2 L current oxygen, the patient denies chest pain shortness of breath and no significant cough, patient denies abdominal pain, no nausea vomiting or diarrhea. Pain to the left foot has decreased in intensity patient white count is 6.5 creatinine 0.46 Vanco trough low at 7.4 culture with staph epi that is resistant to tetracycline and Bactrim Objective - Vital Signs Vital signs: Vital Signs Temp 97.9 F 01/13/24 07:06 Pulse 86 01/13/24 07:06 Resp 18 01/13/24 07:06 BP 123/70 01/13/24 07:06 Pulse Ox 90 L 01/13/24 07:06 FiO2 Intake & Output 01/12/24 01/13/24 01/13/24 18:59 06:59 18:59 Intake Total 120 Output Total 500 Balance -380 Intake: Oral 120 Output: Urine 500 Other: # Voids 1 1 - Exam GENERAL DESCRIPTION: An elderly male lying in bed in no distress RESPIRATORY SYSTEM: Unlabored breathing , decreased breath sounds at bases HEART: S1 S2 regular rate and rhythm , ABDOMEN: Soft , no tenderness EXTREMITIES: Left foot wound is drying out overall redness has decreased - Labs CBC & Chem 7: 01/12/24 05:17 01/13/24 11:13 Labs: Microbiology - Last 24 Hours (Table) 01/10/24 12:00 Gram Stain - Final Foot - Left Wound Culture - Final Staphylococcus epidermidis 01/09/24 13:46 Blood Culture Gram Stain - Final Blood Blood Culture - Final Staphylococcus hominis Molecular ID Assessment and Plan (1) Cellulitis of left foot Current Visit: Yes Status: Acute Code(s): L03.116 - CELLULITIS OF LEFT LOWER LIMB SNOMED Code(s): 44423251537196537 (2) Foot ulcer Current Visit: Yes Status: Acute Code(s): L97.509 - NON-PRESSURE CHRONIC ULCER OTH PRT UNSP FOOT W UNSP SEVERITY SNOMED Code(s): 14594418 (3) Failure of outpatient treatment Current Visit: Yes Status: Acute Code(s): Z78.9 - OTHER SPECIFIED HEALTH STATUS SNOMED Code(s): 139774000 Plan: 1patient presented to hospital with worsening swelling redness to the left foot along with the pain in this patient who did have a chronic ulcer on the plantar aspect of the left foot and has failed outpatient oral antibiotic therapy x-rays were negative for any bony destruction. 2patient did have bedside debridement of the wound and culture are currently pending, superficial culture grew Marilin more likely colonizer/contaminant 3positive blood culture with coagulase-negative staph more likely skin contamination left foot surgical culture also showing that coagulase-negative staph 4patient received about a week of IV vancomycin will consider a 7-day course of oral Zyvox on discharge prescription has been sent Dictation was produced using [employer] dictation software. please excuse any grammatical, word or spelling errors. , Time with Patient: Less than 30
--- NOTE | 2024-01-13 13:20 | CDI ---
Documentation Clarification Form Date: 01/13/2024 01:08:39 PM From: Yarelis Chen RN CCDS Phone: [phone] Admit Date: 01/09/2024 03:36:00 PM Patient Name: Faye Mc Visit Number: [id number] Discharge Date: ATTENTION: The Clinical Documentation Specialists (CDI) and [facility] Coding Staff appreciate your assistance in clarifying documentation. Please respond to the clarification below the line at the bottom and electronically sign. The CDI & [facility] Coding staff will review the response and follow-up if needed. Please note: Queries are made part of the Legal Health Record. If you have any questions, please contact the author of this message via ITS. Doctor: Edgar Gonzalez A debridement is documented on left foot plantar aspect. Unfortunately, some required elements have not been documented. Additional clarification regarding the procedure is requested. History/Risk Factors:88 year old female presents to the ED for left foot infection that she has had for a few weeks has been seeing Dr. Mcmahon outpatient and has become more painful. Medical history: Lung cancer, COPD, Primary osteoarthritis, Essential HTN, and Moderate protein calorie malnutrition. 01/08, Clinical Indicators: Procedure note, 01/09: Debridement down to the subcutaneous tissue some devitalized tissue was removed which was sent for deep culture wound irrigated with saline no active bleeding. Debridement measurement is1 x 0.5 x 0.5cm. Treatment: Debridement , Medihoney gel applied to the wound. Please clarify the procedure performed: [X ] Excisional debridement (the removal of necrotic, devitalized tissue or slough by means of cutting away of tissue) Instrument: Scalpel Nature of the tissue removed: Subcutaneous, necrotic tissue [ ] Non-excisional debridement (the removal of necrotic, devitalized tissue or slough by means of flushing, brushing, or washing. (Irrigation) Instrument: Nature of the tissue removed [ ] Other; please specify Five elements required for accurate and compliant documentation of a debridement: -Technique used (e.g., excisional, excised, cutting, brushing, jet lavage etc.) -Instrument(s) used (e.g., scalpel, curette, etc.) -Nature of the tissue removed (e.g., necrotic, devitalized tissues, non-viable tissue, etc.) -Appearance and size of the wound (e.g., down to fresh bleeding tissue, 7cm x 10cm, etc.) -Depth of the debridement* (e.g., skin, subcutaneous tissue, fascia, muscle, bone, etc.) (Template Last Revised: November 2023) MTDD
[2024-01-13 13:36] VITALS: BP 162/77; PULSE 88; RESP 20; TEMP 97.3
--- NOTE | 2024-01-13 14:18 | P.DS ---
Providers Date of admission: 01/09/24 15:36 Expected date of discharge: 01/13/24 Attending physician: Jacobo Astudillo Consults: 01/09/24 14:54 Consult Physician Urgent Consulting Provider: Law Chavez Consult Reason/Comments: foot ulcer Do you want consulting provider notified?: Already Contacted 01/09/24 15:34 Consult Physician Routine Consulting Provider: Edgar Gonzalez Consult Reason/Comments: foot ulcer Do you want consulting provider notified?: Yes [facility] Course: Chief Complaint: Left foot pain This is a very pleasant 88-year-old patient who follows with Dr. Renteria. Medical history includes COPD, GERD, osteoarthritis, chronic colitis. Patient is extremely hard of hearing. But able to give a history. She was diagnosed with right lung cancer 24 years ago. Had partial lung removed followed by radiation and chemotherapy. Did well. About 4 years ago she developed cancer again what she describes in the tubes of the lung. And she was given chemoradiation. Hence she was told that nothing further can be done. For last 2 years patient has been hospice. But otherwise doing fair. Her appetite is good. Normally has a bowel movement every other day. No chronic pain. Except now she presents for left foot infection that she has had for few weeks. She follows with vice president of operations Dr. Mcmahon. Has received a few course of antibiotics. It has become more painful. She been under hospice for close to 2 years. Hospice is planning to take her off the hospice service. Denies any obvious fever and chills. States she also has Raynaud's. Does not follow with any lung doctor. January 09: Patient had I&D carried out after left plantar ulcer by Dr. Gonzalez. Dressing in place. On IV vancomycin per ID. Tolerating a diet. January 10: Laying in bed. Pain reasonably well-controlled. Tolerating diet. Blood cultures coming back initially positive. Continue vancomycin. January 11: Comfortable. In bed. Cultures pending. On vancomycin. Wound care per Dr. Gonzalez January 12. Tolerating a diet. Comfortable. Lipitor was added because of PAD. Per ID will be discharged on Zyvox for 7 days. Follow-up with Dr. Gonzalez at the wound care center. Wound care by Dr. Gonzalez. Social history: Son lives with her. She smoked a pack a day for 40 years stopped 18 years ago. Does use a walker. Physical examination: VITAL SIGNS: 97.3, 88, 20, 162 x 77, 94% room air GENERAL: BMI 21, comfortable in bed EYES: Pupils equal. Conjunctiva maurice l. HEENT: External appearance of nose and ears normal, oral cavity grossly normal. Extremely hard of hearing NECK: JVD not raised; masses not palpable. HEART: First and second heart sounds are normal; no edema. LUNGS: Respiratory rate normal; creased breath sounds. ABDOMEN: Soft, nontender, liver spleen not palpable, no masses palpable. PSYCH: Alert and oriented x3; mood and affect maurice l. MUSCULOSKELETAL:No Clubbing/cyanosis;muscles-grossly intact. OA especially in the hands and other joints Extremities: Left foot dressing in place INVESTIGATIONS, reviewed in the clinical context: Wound culture: Staphylococcus epidermidis. Lower extremity LA: Suggestive of severe bilateral peripheral arterial disease. LA on the right 0.32. On the left 0.27. January 11: White count 6.5 hemoglobin 11.4 platelets 329 potassium 3.6 creatinine 0.49 Blood culture [January 08] Staphylococcus hominis. January 09, 2024: White count 5.8 hemoglobin 12 platelets 340 sodium 137 potassium 4.5 creatinine 0.65 lactic acid 0.9 Left foot 3 views: Generalized forefoot and midfoot soft tissue swelling. Ulcer along the ball of the foot. No radiographic evidence of osteolysis. Assessment plan: -Left foot wound on the plantar surface. With surrounding cellulitis. Patient has an ulcer on the plantar surface. Surrounding area is very tender and boggy. Possible underlying cellulitis. Patient has several course of antibiotics outpatient. Was following with vice president of operations Dr. Hicks.: Possible foot abscess Blood cultures positive-Staphylococcus hominis, possible contaminant. Wound culture: Staphylococcus epidermidis. Failed outpatient oral treatment with doxycycline Patient has decreased circulation. Vascular surgery Dr. Gonzalez carried out I&D . Dressing in place. Received IV vancomycin here. Being discharged on Zyvox for 7 days per ID. Follow-up with Dr. Gonzalez from [facility] -Lung cancer: Patient initially had cancer in the right lung 24 years ago. This was locally resected. Followed by chemo and and radiation. Subsequently patient was diagnosed with cancer in the lung about 4 years ago. Treated locally with chemo and radiation. Was told nothing further can be done. Does a PET scan from 2020 showing: Worsening hypermetabolic uptake at the level of the right paratracheal suprahilar region extending anteriorly and superiorly with worsening masslike consolidation. Some right-sided volume loss. Additional consolidation and atelectatic change extending to the posterior lower lobe. Patient states she was told previously that no further treatment could be done. Hence she was in the hospital for last 2 years. Is being followed by [facility] as outpatient. 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 -Moderate protein calorie malnutrition, likely for underlying malignancy Ensure 1 can 3 times daily -COPD in a previous smoker Albuterol as needed -Primary osteoarthritis Pain medication as needed -Essential hypertension Amlodipine 2.5 mg daily -DNR [patient is under hospice care as outpatient] Disposition: Home Past Medical History Past Medical History: Cancer, COPD, GERD/Reflux, Osteoarthritis (OA) Additional Past Medical History / Comment(s): rt lung CA-received radiation and chemo, left pelvic fx-using a cane, receive both covid vaccines,migraines when younger, "a lot of heartburn and gas", bronchitis for past 3 months, hiatal hernia, chronic colitis,lung hx bowel obstruction History of Any Multi-Drug Resistant Organisms: None Reported Past Surgical History: Bladder Surgery, Bowel Resection, Hysterectomy Additional Past Surgical History / Comment(s): rt upper lobectomy, rectocele, hemorrhoidectomy, [place] cataracts, surgery for bowel obstruction Past Anesthesia/Blood Transfusion Reactions: No Reported Reaction Past Psychological History: Anxiety Smoking Status: Former smoker Past Alcohol Use History: None Reported Additional Past Alcohol Use History / Comment(s): quit smoking 18 yrs ago, smoked for 40 yrs, 1 PPD Past Drug Use History: None Reported Plan - Discharge Summary Discharge Rx Participant: No New Discharge Prescriptions: New Atorvastatin [Lipitor] 40 mg PO HS #30 tab Linezolid [Zyvox] 600 mg PO Q12H #14 tab Continue Aspirin [Adult Low Dose Aspirin EC] 81 mg PO DAILY ALPRAZolam [Xanax] 0.25 mg PO BID PRN PRN Reason: Anxiety guaiFENesin [Mucinex] 600 mg PO BID PRN PRN Reason: Cough Cyanocobalamin (Vitamin B-12) [Vitamin B-12] 1,000 mcg PO DAILY amLODIPine [Norvasc] 2.5 mg PO DAILY L.acidoph,Paracasei, B.lactis [Probiotic] 1 cap PO DAILY HYDROcodone/APAP 5-325MG [[place] 5-325] 1 tab PO Q6HR PRN PRN Reason: Pain Discontinued Doxycycline Hyclate 100 mg PO BID Discharge Medication List ALPRAZolam [Xanax] 0.25 mg PO BID PRN 06/16/18 [History] Aspirin [Adult Low Dose Aspirin EC] 81 mg PO DAILY 06/16/18 [History] Cyanocobalamin (Vitamin B-12) [Vitamin B-12] 1,000 mcg PO DAILY 01/09/24 [History] HYDROcodone/APAP 5-325MG [[place] 5-325] 1 tab PO Q6HR PRN 01/09/24 [History] L.acidoph,Paracasei, B.lactis [Probiotic] 1 cap PO DAILY 01/09/24 [History] amLODIPine [Norvasc] 2.5 mg PO DAILY 01/09/24 [History] guaiFENesin [Mucinex] 600 mg PO BID PRN 01/09/24 [History] Atorvastatin [Lipitor] 40 mg PO HS #30 tab 01/13/24 [Rx] Linezolid [Zyvox] 600 mg PO Q12H #14 tab 01/13/24 [Rx] Follow up Appointment(s)/Referral(s): Johnny Renteria MD [Primary Care Provider] - 1-2 days [facility] [NON-STAFF] - Patient Instructions/Handouts: Atorvastatin (By mouth), Linezolid (By mouth), Wound Infection (DC) Activity/Diet/Wound Care/Special Instructions: wound care orders and follow up per dr gonzalez
[2024-01-14] MEDS ORDERED: VANCOMYCIN 750 MG in SODIUM CHLORIDE 0.9% 250 ML IVPB SCH (04:00)
--- NOTE | 2024-01-20 11:35 | CDI ---
Documentation Clarification Form Date: 01/20/2024 11:11:52 AM From: Chaya Fernandez Phone: Admit Date: 01/09/2024 03:36:00 PM Patient Name: Faye Mc Visit Number: [id number] Discharge Date: 01/13/2024 03:03:00 PM ATTENTION: The Clinical Documentation Specialists (CDI) and [facility] Coding Staff appreciate your assistance in clarifying documentation. Please respond to the clarification below the line at the bottom and electronically sign. The CDI & [facility] Coding staff will review the response and follow-up if needed. Please note: Queries are made part of the Legal Health Record. If you have any questions, please contact the author of this message via ITS. Doctor/Provider: Jacobo Astudillo There is documentation of a wound ulcer on left foot in DS on 01/13/2024. Additional specificity regarding the [etiology, severity] of the wound is requested. Patient history/risk factors: Pt is 88-year-old patient who follows withDr. Renteria. Medical history includesCOPD,GERD,osteoarthritis, chroniccolitis. Patient is extremelyhard of hearing. But able to give a history. She was diagnosed with right lung [id number] years ago. Clinical Indicators: H/P on 01/08 Left foot has awoundon the plantar surface proximal to the second metacarpal phalangeal joint. Very tender surrounding the same .Area of redness extending to the midfoot. Possibly some fluctuation White count 5.8 hemoglobin 12 platelets 340 sodium 137 potassium 4.5 creatinine 0.65 lactic acid 0.9 Left foot 3 views: Generalized forefoot and midfoot soft tissueswelling. Ulcer along the ball of the foot. No radiographic evidence ofosteolysis. On 01/10 pn -Patient presented to hospital with worseningswellingredness to the left foot along with thepainin this patient who did have a chroniculceron the plantar aspect of the left foot and has failed outpatient oral antibiotictherapyx-rays were negative forany bonydestruction. On01/12 DS -Left footwoundon the plantar surface. With surroundingcellulitis. Patient has anulceron the plantar surface. Surrounding area is very tender and boggy. Possibleunderlyingcellulitis. Patient has several course of antibiotics outpatient. Was following with machine tack puller Dr. Hicks.:Possiblefoot abscess Blood cultures positive-Staphylococcushominis , possible contaminant .Wound culture:Staphylococcusepidermidis. Treatment: Debridementdown to the subcutaneous tissue some devitalized tissue wasremoved, Continue with localwoundcare andIV antibiotic Consults: Please clarify the etiology and severity of the wound: Severity: [ ] Limited to breakdown of skin [ ] With fat layer exposed [ ] With necrosis of muscle [ ] With necrosis of bone [ ] Other, Please specify [ ] Unable to determine (Template Last Revised: May 2020) MTDD
--- NOTE | 2024-01-21 12:38 | CDI ---
Documentation Clarification Form Date: 01/21/2024 12:24:15 PM From: Chaya Fernandez Phone: Admit Date: 01/09/2024 03:36:00 PM Patient Name: Faye Mc Visit Number: [id number] Discharge Date: 01/13/2024 03:03:00 PM ATTENTION: The Clinical Documentation Specialists (CDI) and [facility] Coding Staff appreciate your assistance in clarifying documentation. Please respond to the clarification below the line at the bottom and electronically sign. The CDI & [facility] Coding staff will review the response and follow-up if needed. Please note: Queries are made part of the Legal Health Record. If you have any questions, please contact the author of this message via ITS. Doctor/Provider: Edgar Gonzalez There is documentation of awoundulcer on left footin DS on01/13/2024. Additional specificity regarding the [etiology, severity] of thewoundis requested. Patient history/risk factors: Pt is 88-year-old patient who follows withDr. Renteria . Medical history includesCOPD,GERD,osteoarthritis, chroniccolitis. Patient is extremelyhard of hearing. But able to give a history. She was diagnosed with right lung [id number] years ago. Clinical Indicators: H/P on 01/08 Left foot has awoundon the plantar surface proximal to the second metacarpal phalangeal joint. Very tender surrounding the same . Area of redness extending to the midfoot. Possibly some fluctuation White count 5. 8 hemoglobin 12 platelets 340 sodium 137 potassium 4. 5 creatinine 0. 65 lactic acid 0. 9 Left foot 3 views: Generalized forefoot and midfoot soft tissueswelling. Ulcer along the ball of the foot. No radiographic evidence ofosteolysis. On 01/10 pn -Patient presented to hospital with worseningswellingredness to the left foot along with thepainin this patient who did have a chroniculceron the plantar aspect of the left foot and has failed outpatient oral antibiotictherapyx-rays were negative forany bonydestruction. On01/12 DS -Left footwoundon the plantar surface. With surroundingcellulitis. Patient has anulceron the plantar surface. Surrounding area is very tender and boggy. Possibleunderlyingcellulitis. Patient has several course of antibiotics outpatient. Was following with culture media laboratory assistant Dr. Hicks. :Possiblefoot abscess Blood cultures positive-Staphylococcushominies , possible contaminant . Wound culture:Staphylococcusepidermidis. Treatment: Debridementdown to the subcutaneous tissue some devitalized tissue wasremoved, Continue with localwoundcare andIV antibiotic Consults: Please clarify the etiology and severity of thewound: Severity: [ ] Limited tobreakdownof skin [ ] With fat layer exposed [ ] Withnecrosisof muscle [ ] Withnecrosisof bone [ ] Other, Please specify [ ] Unable to determine (Template Last Revised: May 2020) MTDD
--- NOTE | 2024-01-28 15:59 | CDI ---
The Clinical Documentation Specialists (CDI) and [facility] Coding Staff appreciate your assistance in clarifying documentation.Please respond to the clarification below the line at the bottom and electronically sign.The CDI [facility] Coding staff will review the response and follow-up if needed.Please note: Queries are made part of the Legal Health Record.If you have any questions, please contact the author of this message via ITS. Doctor/Provider: Edgar Gonzalez Thank you for acknowleding previous query but it lacks a response , thank you There is documentation of a wound ulcer on left foot in DS on 01/13/2024. Additional specificity regarding the [etiology, severity] of the wound is requested. Patient history/risk factors: Pt is 88-year-old patient who follows with Dr. Renteria .Medical history includes COPD, GERD, osteoarthritis, chronic colitis.Patient is extremely hard of hearing.But able to give a history.She was diagnosed with right lung cancer 24 years ago. Clinical Indicators: H/P on 01/08 Left foot has a wound on the plantar surface proximal to the second metacarpal phalangeal joint.Very tender surrounding the same .Area of redness extending to the midfoot.Possibly some fluctuation White count 5. 8 hemoglobin 12 platelets 340 sodium 137 potassium 4. 5 creatinine 0. 65 lactic acid 0. 9 Left foot 3 views: Generalized forefoot and midfoot soft tissue swelling.Ulcer along the ball of the foot.No radiographic evidence of osteolysis. On 01/10 pn -Patient presented to hospital with worsening swelling redness to the left foot along with the pain in this patient who did have a chronic ulcer on the plantar aspect of the left foot and has failed outpatient oral antibiotic therapy x-rays were negative for any bony destruction. On01/12 DS -Left foot wound on the plantar surface.With surrounding cellulitis. Patient has an ulcer on the plantar surface.Surrounding area is very tender and boggy. Possible underlying cellulitis.Patient has several course of antibiotics outpatient.Was following with dictating machine transcriber Dr. Hicks.: Possible foot abscess Blood cultures positive-Staphylococcus hominies , possible contaminant .Wound culture: Staphylococcus epidermidis. Treatment: Debridement down to the subcutaneous tissue some devitalized tissue was removed , Continue with local wound care and IV antibiotic Consults: Please clarify the etiology and severity of the wound: Severity: [ ] Limited to breakdown of skin [ ] With fat layer exposed [x ] With necrosis of muscle [ ] With necrosis of bone [ ] Other, Please specify [ ] Unable to determine (Template Last Revised: May 2020) MARIE
== END 2024-01-13 15:03 | disposition home or self-care (01) | DRG 264 ==
LOC: EC 11:39 → 5NMEDONC 15:36
PROVIDERS: ADMIT Hospitalist; ATTEND Hospitalist
PROC: 0JBR0ZZ Excision of Left Foot Subcutaneous Tissue and Fascia, Open Approach (ICD-10-PCS; principal; 2024-01-10)
DX: I70.263 Atherosclerosis of native arteries of extremities with gangrene, bilateral legs (principal); C34.31 Malignant neoplasm of lower lobe, right bronchus or lung; L03.116 Cellulitis of left lower limb; E44.0 Moderate protein-calorie malnutrition; Z16.24 Resistance to multiple antibiotics; J44.9 Chronic obstructive pulmonary disease, unspecified; K21.9 Gastro-esophageal reflux disease without esophagitis; K52.9 Noninfective gastroenteritis and colitis, unspecified; H91.90 Unspecified hearing loss, unspecified ear; M19.91 Primary osteoarthritis, unspecified site; I10 Essential (primary) hypertension; Z66 Do not resuscitate; R26.9 Unspecified abnormalities of gait and mobility; F41.9 Anxiety disorder, unspecified; L97.523 Non-pressure chronic ulcer of other part of left foot with necrosis of muscle; L84 Corns and callosities; Z68.21 Body mass index [BMI] 21.0-21.9, adult; Z51.5 Encounter for palliative care; Z79.82 Long term (current) use of aspirin; Z92.3 Personal history of irradiation; Z85.118 Personal history of other malignant neoplasm of bronchus and lung; Z87.891 Personal history of nicotine dependence; Z92.21 Personal history of antineoplastic chemotherapy; Z91.040 Latex allergy status; Z90.2 Acquired absence of lung [part of]
CPT/HCPCS: 36415; 71046; 80048; 80053; 80202; 82565; 83605; 85025; 85610; 85730; 87040; 87070; 87075; 87077; 87186; 87205; 93922; 96365; 96375; 99285

== ENCOUNTER 2024-05-01 10:45 | Inpatient (IN) | payer MEDICARE ==
[2024-05-01 10:57] VITALS: TEMP 97.7
[2024-05-01] MEDS: KETOROLAC 15 MG/ML 1 ML VIAL IVP STA ×2 (11:35→12:57)
[2024-05-01 11:42] LABS: Basophils % (A) 0 %; Eosinophils # (A) 0.1 k/uL (0-0.7); Eosinophils % (A) 1 %; HCT 37.5 % (34.0-46.0); HGB 12.1 gm/dL (11.4-16.0); Lymphocytes # (A) 0.5 k/uL (1.0-4.8); Lymphocytes % (A) 5 %; MCH 29.5 pg (25.0-35.0); MCHC 32.2 g/dL (31.0-37.0); MCV 91.7 fL (80.0-100.0); Mean Platelet Volume 7.8; Monocytes # (A) 0.3 k/uL (0-1.0); Monocytes % (A) 3 %; Neutrophils # (A) 9.8 k/uL (1.3-7.7); Neutrophils % (A) 90 %; Platelet Count 391 k/uL (150-450); RBC 4.09 m/uL (3.80-5.40); RDW 15.3 % (11.5-15.5); WBC 10.8 k/uL (3.8-10.6)
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
[2024-05-01 11:52] LABS: ALT 13 U/L (4-34); AST 27 U/L (14-36); African American GFR (CKD) >90 (>60 ml/min/1.73 sqM); Albumin 4.6 g/dL (3.5-5.0); Alkaline Phosphatase 81 U/L (38-126); Anion Gap 10 mmol/L; Blood Urea Nitrogen 18 mg/dL (7-17); Calcium 10.1 mg/dL (8.4-10.2); Carbon Dioxide 28 mmol/L (22-30); Chloride 101 mmol/L (98-107); Glucose 116 mg/dL (74-99); Non-African American GFR(CKD) 84 (>60 ml/min/1.73 sqM); Potassium 4.6 mmol/L (3.5-5.1); Sodium 139 mmol/L (137-145); Total Bilirubin 0.5 mg/dL (0.2-1.3); Total Protein 7.3 g/dL (6.3-8.2)
--- NOTE | 2024-05-01 13:43 | CT ---
EXAMINATION TYPE: CT brain cspine wo con DATE OF EXAM: 05/01/2024 1:21 PM COMPARISON: None. CLINICAL INDICATION: Female, 89 years old with history of Fall, rib fracture, FALL TECHNIQUE: CT of the brain is performed utilizing 3 mm thick sections through the posterior fossa and 3 mm thick sections through the remaining calvarium. Study is performed within 24 hours of arrival to the hospital. Contrast used: mL of , (none if empty) CT DLP: 1226.7 mGycm, Automated exposure control for dose reduction was used. FINDINGS: No abnormal hyperdensity is present to suggest an acute intracranial hemorrhage. No mass lesion is evident. No acute infarcts are evident. Some minimal periventricular white matter hypodensity is present, like ly on the basis of chronic white matter ischemic changes. Ventricles and sulci are mildly prominent for the patient age. Paranasal sinuses and mastoid air cells within the [id number] are clear. IMPRESSION: 1. No acute intracranial process. Follow up MRI can be performed as clinically indicated. 2. Mild age-related atrophy and minimal periventricular white matter ischemic changes. [facility], , 05/01/2024 1:41 PM
--- NOTE | 2024-05-01 13:46 | XR ---
EXAMINATION TYPE: XR ribs RT w pa chest xray DATE OF EXAM: 05/01/2024 12:18 PM COMPARISON: 01/09/2024 CLINICAL INDICATION: Female, 89 years old with history of Fall, right rib crepitus, TECHNIQUE: XR ribs RT w pa chest xray view(s) obtained. FINDINGS: The heart size is normal. There is fullness in the right hilar region. A port overlies the right shahriar st with the tip in the superior vena cava region. The pulmonary vasculature is normal. The lungs are clear. No pneumothorax is evident. 2 views of the right ribs were obtained. Postsurgical changes evident in the right suprahilar region. There is a right lateral rib fracture lateral right eighth rib.a ninth rib and 10th rib lateral fract ures may also be present IMPRESSION: 1. Right lateral eighth through 10th rib fractures. No pneumothorax is evident. 2. Left suprahilar masslike area of postsurgical change [facility], , 05/01/2024 1:43 PM
--- NOTE | 2024-05-01 13:52 | CT ---
EXAMINATION TYPE: CT chest wo con DATE OF EXAM: 05/01/2024 1:20 PM COMPARISON: None. CLINICAL INDICATION: Female, 89 years old with history of Fall, rib fracture, FALL TECHNIQUE: Axial images were obtained at 5 mm thick sections. Reconstructed images are reviewed on [employer] computer in the coronal plane. Contrast used: mL of , (none if empty) Oral contrast used: (none if empty) CT DLP: 174.3 mGycm, Automated exposure control for dose reduction was used. FINDINGS: Portion of the thyroid visualized is normal. No suspicious lung nodules or focal infiltrates are present. Emphysematous changes are present. Left suprahilar density is present. Surgical suture appears to be present. Fractures of the posterior right ninth 10th and 11th ribs are evident. A posterior lateral right eigh th rib fracture is evident. No pneumothorax is evident. No liver laceration identified. Small amount of fluid is present at the lung bases. No enlarged mediastinal or hilar adenopathy is evident. The ascending aorta diameter at the level o f the main pulmonary artery is 3.4 cm. The main pulmonary artery diameter at the bifurcation is 3.2 cm. Vascular calcifications through the aorta. Dense coronary artery calcification is present. Limited CT sections are obtained through the upper abdomen. Abdomen is essentially unremarkable. IMPRESSION: 1. Fracture of the posterior lateral right eighth rib and posterior ninth 10th and 11th rib fractures . 2. No pneumothorax or cord and laceration. 3. Small amount of fluid in the dependent right lung base may be hemorrhage or pleural effusion. [facility], , 05/01/2024 1:50 PM
[2024-05-01] MEDS ORDERED: KETOROLAC 15 MG/ML 1 ML VIAL IVP PRN (14:38)
[2024-05-01] MEDS ORDERED: NALOXONE 0.4 MG/ML 1 ML VIAL IV PRN (14:38)
[2024-05-01] MEDS ORDERED: HYDROcodone/APAP 5-325MG 1 EACH TAB PO PRN (14:40)
[2024-05-01] MEDS: HYDROmorphone 0.5 MG/0.5 ML SYRINGE IVP PRN (15:16)
[2024-05-01 15:19] VITALS: BP 134/64; PULSE 90; RESP 16
== END 2024-05-01 16:10 | disposition hospice, inpatient (51) | DRG 185 ==
LOC: EC 10:45 → 4SSUR 14:05
PROVIDERS: ADMIT Surgery; ATTEND Surgery
DX: S22.41XA Multiple fractures of ribs, right side, initial encounter for closed fracture (principal); Z51.5 Encounter for palliative care; Z66 Do not resuscitate; J44.9 Chronic obstructive pulmonary disease, unspecified; W01.198A Fall on same level from slipping, tripping and stumbling with subsequent striking against other object, initial encounter; Y92.002 Bathroom of unspecified non-institutional (private) residence as the place of occurrence of the external cause; K21.9 Gastro-esophageal reflux disease without esophagitis; Z92.21 Personal history of antineoplastic chemotherapy; Z85.118 Personal history of other malignant neoplasm of bronchus and lung; Z79.82 Long term (current) use of aspirin; Z79.899 Other long term (current) drug therapy; Z92.3 Personal history of irradiation; Z90.710 Acquired absence of both cervix and uterus; Z87.891 Personal history of nicotine dependence
CPT/HCPCS: 36415; 70450; 71250; 72125; 80053; 82550; 82552; 85025; 96374; 96375; 96376; 99285

== ENCOUNTER 2024-05-01 16:05 | Inpatient (IN) | payer MEDICAID, MEDICARE ==
[2024-05-01] MEDS ORDERED: ACETAMINOPHEN TAB 325 MG TAB PO PRN (16:07)
[2024-05-01] MEDS ORDERED: NALOXONE 0.4 MG/ML 1 ML VIAL IVP PRN (16:13)
[2024-05-01] MEDS ORDERED: DOCUSATE 100 MG CAP PO PRN (16:23)
--- NOTE | 2024-05-01 16:41 | P.HPIM ---
History of Present Illness H&P Date: 05/01/24 Chief Complaint: hospice 89-year-old woman who is a patient of hospice for with metastatic lung cancer, also with history of GERD, osteoarthritis, COPD. Patient recently had a fall and had multiple rib fractures and has had difficulty in controlling her pain as an outpatient. Hospice called and requested general inpatient admission for hospice. Patient is hemodynamically stable. CBC showed leukocytosis of 10.8. Comprehensive metabolic panel was unremarkable. CT of the brain and C-spine show no acute intracranial process. Rib x-ray showed right lateral 8th through 10th rib fractures and left suprahilar masslike area. CT scan of the chest redemonstrated fractures, showed small amount of fluid dependent right lung base. All Systems reviewed and pertinent positives and negatives noted in HPI, all other symptoms are negative Gen: In NAD, non-toxic HEENT: normocephalic, atraumatic, CVS: perfusing all extremities well Respiratory: symmetric chest expansion, no accessory muscle use, Assessment and plan: Metastatic cancer Multiple rib fractures -Comfort measures only. -Symptomatic care and pain management. -Hospice consulted, appreciate recs Past Medical History Past Medical History: Cancer, COPD, GERD/Reflux, Osteoarthritis (OA) Additional Past Medical History / Comment(s): rt lung CA-received radiation and chemo, currently receiving immunotheray, left pelvic fx-using a cane, receive both covid vaccines,migraines when younger, "a lot of heartburn and gas", bronchitis for past 3 months, hiatal hernia, chronic colitis,lung hx bowel obstruction History of Any Multi-Drug Resistant Organisms: None Reported Past Surgical History: Bladder Surgery, Bowel Resection, Hysterectomy Additional Past Surgical History / Comment(s): rt upper lobectomy, rectocele, hemorrhoidectomy, [place] cataracts, surgery for bowel obstruction Past Anesthesia/Blood Transfusion Reactions: No Reported Reaction Past Psychological History: Anxiety Smoking Status: Former smoker Past Alcohol Use History: None Reported Past Drug Use History: None Reported - Past Family History Mother Family Medical History: Cancer Son(s) Family Medical History: Cancer Brother(s) Family Medical History: Deep Vein Thrombosis (DVT) Medications and Allergies Home Medications Medication Instructions Recorded Confirmed Type ALPRAZolam [Xanax] 0.25 mg PO Q4H PRN 06/16/18 05/01/24 History Aspirin [Adult Low Dose Aspirin EC] 81 mg PO DAILY 06/16/18 05/01/24 History HYDROcodone/APAP 5-325MG [[place] 1 tab PO Q6HR PRN 01/09/24 05/01/24 History 5-325] amLODIPine [Norvasc] 2.5 mg PO DAILY 01/09/24 05/01/24 History guaiFENesin [Mucinex] 600 mg PO BID PRN 01/09/24 05/01/24 History Albuterol Inhaler [Ventolin Hfa 2 puff INHALATION RT-Q4H PRN 05/01/24 05/01/24 History Inhaler] Cholecalciferol [Vitamin D3 (125 250 mcg PO DAILY 05/01/24 05/01/24 History Mcg = 5000 Iu)] Diclofenac Sodium [Voltaren 1 inch TOPICAL BID PRN 05/01/24 05/01/24 History Arthritis Pain 1% Gel] Docusate [Colace] 100 mg PO DAILY 05/01/24 05/01/24 History Gabapentin [Neurontin] 100 mg PO BID 05/01/24 05/01/24 History Ibuprofen [Motrin] 400 mg PO TID PRN 05/01/24 05/01/24 History Ipratropium-Albuterol Nebulize 3 ml INHALATION RT-QID PRN 05/01/24 05/01/24 History [Duoneb 0.5 mg-3 mg/3 ml Soln] Omeprazole 20 mg PO DAILY 05/01/24 05/01/24 History Allergies Allergy/AdvReac Type Severity Reaction Status Date / Time codeine Allergy Unknown Verified 05/01/24 15:42 latex Allergy Swelling Verified 05/01/24 15:42 stitches Allergy SWOLLEN Uncoded 05/01/24 10:57 FOOT Physical Exam Osteopathic Statement: *. No significant issues noted on an osteopathic structural exam other than those noted in the History and Physical/Consult. Vitals: Intake and Output 05/01/24 05/01/24 05/01/24 06:59 14:59 22:59 Other: Weight 58.9 kg
[2024-05-01] MEDS: ALPRAZolam 0.5 MG TAB PO PRN (22:58)
[2024-05-01] MEDS: GABAPENTIN 100 MG CAP PO SCH (23:31)
[2024-05-01] MEDS: KETOROLAC 15 MG/ML 1 ML VIAL IVP PRN (23:33)
[2024-05-01] MEDS: HYDROcodone/APAP 5-325MG 1 EACH TAB PO PRN (23:53)
[2024-05-02] MEDS: PANTOPRAZOLE 40 MG TABLET PO SCH (06:36)
--- NOTE | 2024-05-02 15:24 | P.PN ---
Subjective Progress Note Date: 05/02/24 No new complaints today. Pain controlled. Gen: In NAD, non-toxic HEENT: normocephalic, atraumatic, CVS: perfusing all extremities well Respiratory: symmetric chest expansion, no accessory muscle use, Hospital Course: 89-year-old woman who is a patient of hospice for with metastatic lung cancer, also with history of GERD, osteoarthritis, COPD. Patient is hemodynamically stable. CBC showed leukocytosis of 10.8. Comprehensive metabolic panel was unremarkable. CT of the brain and C-spine show no acute intracranial process. Rib x-ray showed right lateral 8th through 10th rib fractures and left suprahilar masslike area. CT scan of the chest redemonstrated fractures, showed small amount of fluid dependent right lung base. Assessment and plan: Metastatic cancer Multiple rib fractures -Comfort measures only. -Symptomatic care and pain management. -Hospice consulted, appreciate recs -midline ordered, challenging IV access Objective - Vital Signs Vital signs: Vital Signs Temp 98.0 F 05/02/24 06:50 Pulse 86 05/02/24 06:50 Resp 17 05/02/24 06:50 BP 130/63 05/02/24 06:50 Pulse Ox 91 L 05/02/24 06:50 FiO2 Intake & Output 05/01/24 05/02/24 05/02/24 18:59 06:59 18:59 Output Total 600 Balance -600 Weight 58.9 kg 58.9 kg Output: Urine 600 Other: # Voids 1
[2024-05-03] MEDS: HYDROmorphone 0.5 MG/0.5 ML SYRINGE IVP PRN (05:56)
[2024-05-03] MEDS: DOCUSATE 100 MG CAP PO SCH (12:40)
[2024-05-03] MEDS: HYDROcodone/APAP 5-325MG 1 EACH TAB PO SCH (12:40)
--- NOTE | 2024-05-03 13:39 | P.PN ---
Subjective Progress Note Date: 05/03/24 Pain is poorly controlled today, will spend another day here with increased regimen Gen: In NAD, non-toxic HEENT: normocephalic, atraumatic, CVS: perfusing all extremities well Respiratory: symmetric chest expansion, no accessory muscle use, Hospital Course: 89-year-old woman who is a patient of hospice for with metastatic lung cancer, also with history of GERD, osteoarthritis, COPD. Patient is hemodynamically stable. CBC showed leukocytosis of 10.8. Comprehensive metabolic panel was unremarkable. CT of the brain and C-spine show no acute intracranial process. Rib x-ray showed right lateral 8th through 10th rib fractures and left suprahilar masslike area. CT scan of the chest redemonstrated fractures, showed small amount of fluid dependent right lung base. Assessment and plan: Metastatic cancer Multiple rib fractures -Comfort measures only. -Symptomatic care and pain management. -Hospice consulted, appreciate recs -pt now has IV access. Objective - Vital Signs Vital signs: Vital Signs Temp 98.0 F 05/03/24 08:00 Pulse 91 05/03/24 08:00 Resp 18 05/03/24 08:00 BP 142/79 05/03/24 08:00 Pulse Ox 90 L 05/03/24 08:00 FiO2 Intake & Output 05/02/24 05/03/24 05/03/24 18:59 06:59 18:59 Intake Total 120 Balance 120 Intake: Oral 120 Other: Voiding Method Bedside Commode # Voids 2 3
[2024-05-03] MEDS: ONDANSETRON 4 MG/2 ML VIAL IVP PRN (14:25)
--- NOTE | 2024-05-03 14:39 | P.PAINPG ---
Objective - Vital Signs Vital signs: Vital Signs Temp 98.0 F 05/03/24 08:00 Pulse 91 05/03/24 08:00 Resp 18 05/03/24 08:00 BP 142/79 05/03/24 08:00 Pulse Ox 90 L 05/03/24 08:00 FiO2 Intake & Output 05/02/24 05/03/24 05/03/24 18:59 06:59 18:59 Intake Total 120 Balance 120 Intake: Oral 120 Other: Voiding Method Bedside Commode # Voids 2 3 PQRS Measure Charge Sheet Comment: HISTORY OF PRESENT ILLNESS: A 89 yr old inpatient female on hospice care as a referral from Dr Ferguson presents today w severe and chronic bone pain secondary to metastasis from Lung CA for evaluation. Pt states pain level is provoked at 9 /10 in intensity, constant, generalized, achy in character without shooting pain. Pain has no provocation. Pain is alleviated by medications (Dilaudid 0.5mg q3h prn, [place] 5/325gm q6h prn, Toradol 15mg/mL q6h prn, Tyl 650mg q6h prn, Neurontin 100mg BID), repositioning and rest . She also has Narcan at her disposal at this facility. PMH: OA, R Lung CA w Metastasis, COPD, GERD, HH, Bowel Obstruction Hx, Anxiety PSH: L Pelvic Fx, Bladder Surgery, Bowel Resection, Hysterectomy, R Upper Lobectomy, Rectocoele, Hemorrhoidectomy, BL Cataract Extraction SH: Former tobacco user, No ETOH use, No illicit drug use FH: Mo- CA. Son- CA. Bro- DVT All: See list Meds: See list REVIEW OF ORGAN SYSTEMS: CONSTITUTIONAL: No fevers or chills. No recent weight loss. NEUROLOGICAL: + numbness and tingling along the distal extremities. No seizure disorders or headaches. MUSCULOSKELETAL: + pain PSYCHIATRIC: Denies current depression or suicidal thoughts. Physical Examinations : Constitutional : Cooperative , not in acute distress . Neurologic : Cranial nerve II to XII intact. No focal neurological deficits. Psychiatric : alert & oriented x 3. Matching mood & appropriate affect. Judgment & insight intact. Musculoskeletal : Cervical Spine Motor strength in the deltoid and biceps: Normal right side. Normal Left side Motor strength biceps and the wrist extensors: Normal right side . Normal left side Motor strength in the triceps muscle: Normal right side. Normal left side Deep tendon reflexes: Normal at the biceps. Normal at Brachioradialis. Normal at triceps Vertebral body tenderness to deep palpation over Cervical facet loading test: positive bilaterally Spurling test: positive bilaterally Neck distraction test: positive bilaterally Genny sign: positive bilaterally Lumbar spine Motor strength lower extremities ,thigh and legs 5/5 Right side , 5/5 Left side Deep tendon reflexes : Normal Knee Jerk. Normal Ankle Jerk Vertebral body tenderness over Reyes Test positive Lumbar facet Loading Test: positive Right / positive Left Range of motion of the lumbar spine Flexion 30 degrees, extension 10 degrees Straight Leg Raise test: Left/ Right positive at degrees Julian test: positive right / positive left. Severe tenderness over the Sacroiliac joint on the Right / Left sides Gaenslen test: positive bilaterally Seated flexion test: positive bilaterally. Sacral spine : Severe tenderness over the Sacroiliac joint: right side / left side Range of motion: Flexion of the lumbar spine <60 degrees Range of motion: Extension of the lumbar spine <20 degrees Gaenslen's Test positive Julian test: positive right side / left side Thigh Thrust Test Sacral Thrust Test Assessment/ Plan : Bone pain secondary to Lung CA w metastasis Recommendation of medication management. Agreeable to current regimen as pt appears comfortable at this time. If drowsiness occurs with Dilaudid IVP, may consider replacing it with Fentanyl 12.5mcg/hr q72 hr at a later time. All questions answered. I have spent greater than 30 minutes on patient care today. Dr Wick was available by phone for the evaluation of this patient. The time was used to review the medical records including relevant urine studies and Prescription history (MAPs), review of the available imaging, evaluation and examination of the patient, coordination of care with the medical staff and if applicable referring physicians, as well as creation of the medical record PQRS Narrative: Smoking Status Former smoker Blood Pressure [Right Arm] 142/79 Pain Intensity [Right Chest] 10 Pain Intensity 6 Pain Scale Used Numeric (1 - 10) Scale Used Numeric (1 - 10) Home Medications: Ambulatory Orders ALPRAZolam [Xanax] 0.25 mg PO Q4H PRN 06/16/18 Aspirin [Adult Low Dose Aspirin EC] 81 mg PO DAILY 06/16/18 HYDROcodone/APAP 5-325MG [[place] 5-325] 1 tab PO Q6HR PRN 01/09/24 amLODIPine [Norvasc] 2.5 mg PO DAILY 01/09/24 guaiFENesin [Mucinex] 600 mg PO BID PRN 01/09/24 Albuterol Inhaler [Ventolin Hfa Inhaler] 2 puff INHALATION RT-Q4H PRN 05/01/24 Cholecalciferol [Vitamin D3 (125 Mcg = 5000 Iu)] 250 mcg PO DAILY 05/01/24 Diclofenac Sodium [Voltaren Arthritis Pain 1% Gel] 1 inch TOPICAL BID PRN 05/01/24 Docusate [Colace] 100 mg PO DAILY 05/01/24 Gabapentin [Neurontin] 100 mg PO BID 05/01/24 Ibuprofen [Motrin] 400 mg PO TID PRN 05/01/24 Ipratropium-Albuterol Nebulize [Duoneb 0.5 mg-3 mg/3 ml Soln] 3 ml INHALATION RT-QID PRN 05/01/24 Omeprazole 20 mg PO DAILY 05/01/24 Controlled Substance Measures - Controlled Substance Measures Is patient prescribed a controlled substance at discharge?: No
--- NOTE | 2024-05-04 14:10 | P.PN ---
Subjective Progress Note Date: 05/04/24 Pain is still poorly controlled today, adjusting pain regimen today. Gen: In NAD, non-toxic HEENT: normocephalic, atraumatic, CVS: perfusing all extremities well Respiratory: symmetric chest expansion, no accessory muscle use, Hospital Course: 89-year-old woman who is a patient of hospice for with metastatic lung cancer, also with history of GERD, osteoarthritis, COPD. Patient is hemodynamically stable. CBC showed leukocytosis of 10.8. Comprehensive metabolic panel was unremarkable. CT of the brain and C-spine show no acute intracranial process. Rib x-ray showed right lateral 8th through 10th rib fractures and left suprahilar masslike area. CT scan of the chest redemonstrated fractures, showed small amount of fluid dependent right lung base. Assessment and plan: Metastatic cancer Multiple rib fractures -Comfort measures only. -Symptomatic care and pain management. -added fentanyl patch, switch norco to PRN -added ibuprofen 600mg q6h PRN -Hospice consulted, appreciate recs -pt now has IV access. Objective - Vital Signs Vital signs: Vital Signs Temp 98.1 F 05/04/24 07:11 Pulse 80 05/04/24 07:11 Resp 16 05/04/24 08:45 BP 114/63 05/04/24 07:11 Pulse Ox 98 05/04/24 07:11 FiO2 Intake & Output 05/03/24 05/04/24 05/04/24 18:59 06:59 18:59 Other: Voiding Method Bedside Commode # Voids 1 2
[2024-05-04] MEDS ORDERED: SENNOSIDES 8.6 MG TAB PO PRN (14:41)
[2024-05-05] MEDS: IBUPROFEN 600 MG TAB PO PRN (01:32)
[2024-05-05 07:23] VITALS: BP 113/64; RESP 16; TEMP 98.2
[2024-05-05 09:09] VITALS: PULSE 81
--- NOTE | 2024-05-05 11:04 | P.DS ---
Providers Date of admission: 05/01/24 16:10 Attending physician: Narciso Armas MD Primary care physician: [facility] Course: Discharge Diagnosis: Metastatic cancer Multiple rib fractures Hospital Course: 89-year-old woman who is a patient of hospice for with metastatic lung cancer, also with history of GERD, osteoarthritis, COPD. Patient is hemodynamically stable. CBC showed leukocytosis of 10.8. Comprehensive metabolic panel was unremarkable. CT of the brain and C-spine show no acute intracranial process. Rib x-ray showed right lateral 8th through 10th rib fractures and left suprahilar masslike area. CT scan of the chest redemonstrated fractures, showed small amount of fluid dependent right lung base. This was consulted, patient transitioned to comfort measures only. Patient seen and examined at bedside. Vital signs reviewed and stable. Gen: In NAD, non-toxic HEENT: normocephalic, atraumatic, CVS: perfusing all extremities well Respiratory: symmetric chest expansion, no accessory muscle use, A total of 40 minutes of time were spent preparing this complex discharge summary. Patient was discharged on 05/05/24. Plan - Discharge Summary Discharge Rx Participant: Yes New Discharge Prescriptions: New fentaNYL 12MCG/HR PATCH [Duragesic 12MCG/HR] 1 patch TRANSDERM Q72H #3 patch HYDROcodone/APAP 5-325MG [[place] 5-325] 1 each PO Q6HR #12 tab ALPRAZolam [Xanax] 0.5 mg PO Q6HR PRN #12 tab PRN Reason: Anxiety Continue Aspirin [Adult Low Dose Aspirin EC] 81 mg PO DAILY guaiFENesin [Mucinex] 600 mg PO BID PRN PRN Reason: Congestion Ibuprofen [Motrin] 400 mg PO TID PRN PRN Reason: Pain Or Fever > 100.5 Ipratropium-Albuterol Nebulize [Duoneb 0.5 mg-3 mg/3 ml Soln] 3 ml INHALATION RT-QID PRN PRN Reason: Shortness Of Breath Omeprazole 20 mg PO DAILY Docusate [Colace] 100 mg PO DAILY Diclofenac Sodium [Voltaren Arthritis Pain 1% Gel] 1 inch TOPICAL BID PRN PRN Reason: Pain Gabapentin [Neurontin] 100 mg PO BID Albuterol Inhaler [Ventolin Hfa Inhaler] 2 puff INHALATION RT-Q4H PRN PRN Reason: Shortness Of Breath Discontinued ALPRAZolam [Xanax] 0.25 mg PO Q4H PRN PRN Reason: Anxiety amLODIPine [Norvasc] 2.5 mg PO DAILY HYDROcodone/APAP 5-325MG [[place] 5-325] 1 tab PO Q6HR PRN PRN Reason: Pain Cholecalciferol [Vitamin D3 (125 Mcg = 5000 Iu)] 250 mcg PO DAILY Discharge Medication List Aspirin [Adult Low Dose Aspirin EC] 81 mg PO DAILY 06/16/18 [History] guaiFENesin [Mucinex] 600 mg PO BID PRN 01/09/24 [History] Albuterol Inhaler [Ventolin Hfa Inhaler] 2 puff INHALATION RT-Q4H PRN 05/01/24 [History] Diclofenac Sodium [Voltaren Arthritis Pain 1% Gel] 1 inch TOPICAL BID PRN 05/01/24 [History] Docusate [Colace] 100 mg PO DAILY 05/01/24 [History] Gabapentin [Neurontin] 100 mg PO BID 05/01/24 [History] Ibuprofen [Motrin] 400 mg PO TID PRN 05/01/24 [History] Ipratropium-Albuterol Nebulize [Duoneb 0.5 mg-3 mg/3 ml Soln] 3 ml INHALATION RT-QID PRN 05/01/24 [History] Omeprazole 20 mg PO DAILY 05/01/24 [History] ALPRAZolam [Xanax] 0.5 mg PO Q6HR PRN #12 tab 05/05/24 [Rx] HYDROcodone/APAP 5-325MG [[place] 5-325] 1 each PO Q6HR #12 tab 05/05/24 [Rx] fentaNYL 12MCG/HR PATCH [Duragesic 12MCG/HR] 1 patch TRANSDERM Q72H #3 patch 05/05/24 [Rx] Discharge Disposition: TRANSFER TO [facility]
== END 2024-05-05 14:10 | disposition hospice, inpatient (51) | DRG 951 ==
LOC: 4SSUR 16:10
PROVIDERS: ADMIT Internal Medicine; ATTEND Internal Medicine
DX: Z51.5 Encounter for palliative care (principal); C79.9 Secondary malignant neoplasm of unspecified site; C34.91 Malignant neoplasm of unspecified part of right bronchus or lung; Z66 Do not resuscitate; J44.9 Chronic obstructive pulmonary disease, unspecified; D72.829 Elevated white blood cell count, unspecified; F41.9 Anxiety disorder, unspecified; G89.3 Neoplasm related pain (acute) (chronic); K21.9 Gastro-esophageal reflux disease without esophagitis; M19.90 Unspecified osteoarthritis, unspecified site; S22.41XD Multiple fractures of ribs, right side, subsequent encounter for fracture with routine healing; Z79.82 Long term (current) use of aspirin; Z79.899 Other long term (current) drug therapy; Z87.891 Personal history of nicotine dependence; Z92.21 Personal history of antineoplastic chemotherapy; Z92.3 Personal history of irradiation